=== PATIENT | female | born 1950 | race Caucasian/White ===

== ENCOUNTER 2024-01-22 13:41 | Inpatient (IN) | payer OTHER ==
[~2024-01-22] VITALS: Ht 167.6 cm; Wt 97.5 kg
[~2024-01-22 13:41] MED LIST: ADAL40PEN; B-12250 MCG PO; BUPR150ER PO; CLIN150 PO; Cleocin HCl150 MG PO; FOLI1 PO; Flagyl500 MG PO; HYDCHL25 PO; HYDR1TAB94 PO; LISI20 PO; METTREX2.5 PO; Naproxen500 MG PO; OMEP20ER PO; OXYACE7.5T PO; RXOXYACE PO; VICODIN 5-3001 EACH PO; Zofran Odt4 MG SL; [UNRECOGNIZED DRUG - REMARK]; [UNRECOGNIZED DRUG - REMARK]
[2024-01-22] MEDS ORDERED: LOSA50 PO (14:30)
[2024-01-22] MEDS ORDERED: METPRE4DP PO (14:31)
[2024-01-22] MEDS ORDERED: ZOLOFT50 MG PO (14:31)
[2024-01-22] MEDS ORDERED: BUPROPION XL150 M1 PO (14:32)
[2024-01-22] MEDS ORDERED: dilTIAZem HCL 125 MG in Dextrose 5% 100 ML IV SCH (14:35)
[2024-01-22 14:47] LABS: BASOPHILS ABSOLUTE AUTO 0.08 K/mm3 (0.00-0.23); BASOPHILS PERCENT AUTO 0 % (0-2); EOSINOPHILS PERCENT AUTO 0 % (0-6); Hematocrit 32.3 % (33.0-51.0); Hemoglobin 10.5 g/dL (11.5-16.0); IMMATURE GRAN ABSOLUTE AUTO 1.19 K/mm3 (0.00-0.10); IMMATURE GRAN PERCENT AUTO 3 % (0-1); LYMPHOCYTES ABSOLUTE AUTO 1.03 K/mm3 (0.84-5.20); LYMPHOCYTES PERCENT AUTO 3 % (21-46); MONOCYTES ABSOLUTE AUTO 0.16 K/mm3 (0.16-1.47); MONOCYTES PERCENT AUTO 0 % (4-13); Mean Corpuscular HGB 32.9 pg (26.0-34.0); Mean Corpuscular HGB Conc 32.5 g/dL (31.5-36.5); Mean Corpuscular Volume 101 fL (80-100); Mean Platelet Volume 8.8 fL (9.1-12.4); NEUTROPHILS PERCENT AUTO 94 % (41-73); Platelet Count 391 K/mm3 (150-400); RDW Coefficient Variation 15.9 % (11.7-14.2); RDW Standard Deviation 56.9 fL (35.1-46.3); Red Blood Cell Count 3.19 M/mm3 (3.80-5.20); White Blood Cell Count 39.56 K/mm3 (4.00-11.30)
[2024-01-22] MEDS ORDERED: Diltiazem HCl 5 MG / ML 5ML Vial IV ONE (15:00)
[2024-01-22 15:08] LABS: Albumin, Blood 2.3 g/dL (3.4-5.0); Albumin/Globulin Ratio 0.5 (0.8-1.8); Bilirubin, Total 1.2 mg/dL (0.1-1.0); Bun/Creatinine Ratio 41.2 (12.0-20.0); Calcium, Blood 8.5 mg/dL (8.5-10.1); Creatinine, Blood 1.7 mg/dL (0.40-1.00); Globulin, Blood 4.3 g/dL (2.2-4.0); Potassium, Blood 4.3 mmol/L (3.5-5.5); Thyroid Stimulating Hormone 2.23 uIU/mL (0.360-4.800); Total Protein, Blood 6.6 g/dL (6.4-8.2)
[2024-01-22] MEDS ORDERED: NS 1,000 ML IV SCH (15:20)
[2024-01-22] MEDS ORDERED: Ondansetron HCl 2 MG / ML 2ML Vial IV ONE (15:40)
[2024-01-22] MEDS ORDERED: Digoxin 0.25 MG/ML 2ML Amp IV ONE (16:45)
[2024-01-22 17:04] LABS: Anti-Xa UFH, PHA Monitoring <0.10 IU/mL; International Normalized Ratio 1.12; Prothrombin Time Results 11.9 Sec (9.7-11.5)
[2024-01-22] MEDS ORDERED: Heparin Sodium,Porcine/0.5 NS 500 ML IV SCH (17:10)
[2024-01-22] MEDS ORDERED: Heparin Sodium 5000 Units/ML 1ML MDV IV ONE ×2 (17:10→17:35)
[2024-01-22 17:55] LABS: IMMATURE RETIC FRACTION 15.1 % (2.3-16.0); RETICULOCYTE ABSOLUTE 0.1115 M/mm3 (0.0200-0.1100); RETICULOCYTE COUNT PERCENT 4.1 % (0.50-2.50)
[2024-01-22 18:11] LABS: Bun/Creatinine Ratio 43.6 (12.0-20.0); Calcium, Blood 8.2 mg/dL (8.5-10.1); Creatinine, Blood 1.56 mg/dL (0.40-1.00); Potassium, Blood 3.5 mmol/L (3.5-5.5)
[2024-01-22 18:54] VITALS: BP 102/55
[2024-01-22 18:56] VITALS: BP 102/55
--- NOTE | 2024-01-22 18:57 | NUR ---
PT ARRIVED TO PCU AROUND 1848 FROM THE ER. VITAL SIGNS STABLE. REPORT FROM JOSE POLLOCK. THE PT ARRIVED WITH A BOLUS OF NS INFUSING, A HEPARIN GTT, AND A CARDIZEM GTT. SEE CRITICAL CARE FLOW SHEET FOR DETAILS. HER FRANKLYN IS AT THE BEDSIDE.
[2024-01-22 20:16] VITALS: BP 95/62
[2024-01-22 20:17] VITALS: BP 98/54
--- NOTE | 2024-01-22 20:38 | NUR ---
CT PE STUDY COMPLETED THIS EVENING RIGHT AFTER SHIFT CHANGE. RESULTS RECEIVED. NOTIFIED RESIDENT DR. HERNANDEZ OF RESULTS. ON REPORT, WAS TOLD THAT DEPENDING ON RESULTS OF CT, STAT ECHO THAT WAS ORDERED FOR TONIGHT NEEDS TO EITHER BE COMPLETED TONIGHT OR CAN BE PUSHED UNTIL MORNING. AFTER GOING OVER RESULTS WITH DR. MARY GARCÍA, OKAY TO PUSH ECHO TO BE COMPLETED UNTIL MORNING. NOTIFIED FLAVIA MERCADO RN WHO NOTIFIED LAST PULLER KIN JENKINS. CONTINUING TO MONITOR.
[2024-01-22] MEDS ORDERED: HYDR1TAB94 (21:16)
[2024-01-22 23:30] VITALS: BP 89/58
[2024-01-22 23:41] VITALS: BP 89/58
[2024-01-23] VITALS (12 sets, daily range): BP systolic 86–99; BP diastolic 21–70
[2024-01-23] MEDS ORDERED: Dose Adjust by Pharmacy XX STA ×2 (00:05→07:28)
[2024-01-23] MEDS ORDERED: Ondansetron HCl 2 MG / ML 2ML Vial IV PRN (01:35)
--- NOTE | 2024-01-23 04:56 | NUR ---
SHIFT SUMMARY. NO ACUTE CHANGES THUS FAR THIS SHIFT. PT HAS BEEN AOX4, PLEASANT, COOPERATIVE WITH CARE, CALLS APPROPRIATELY, ABLE TO MAKE NEEDS KNOWN. ADMISSION PROCESS COMPLETED PER PROTOCOL. HEPARIN GTT HAS BEEN RUNNING THROUGHOUT SHIFT. CARDIZEM RUNNING UNTIL THIS MORNING WHEN IT WAS STOPPED. TELE ON THROUGHOUT SHIFT, HR HAS TRENDED DOWN OVERNIGHT WITH IT NOW SETTLING IN THE 80s-100s WHILE SLEEPING. CONTINUES TO RUN AFIB. BP HAS BEEN SOFT BUT MAP HAS REMAINED >=65 OUTSIDE OF ONE INSTANCE WHEN IT WAS 64. HAS MAINTAINED ADEQUATE SATURATION ON ROOM AIR THROUGHOUT SHIFT. HAS DENIED ANY PAIN OF ANY KIND THROUGHOUT SHIFT. ATTEMPTED POWERGLIDE INSERTION EARLY IN SHIFT BUT WAS UNSUCCESSFUL AND PT REQUESTED NOT TO HAVE FURTHER LINES ATTEMPTED UNTIL MORNING. SOME NAUSEA REPORTED EARLY THIS MORNING, NOTIFIED DR. WILCOX WHO ORDERED ZOFRAN 4 MG IV FOR MANAGEMENT WHICH WORKED WELL. PUREWICK PUT IN PLACE EARLY IN SHIFT DUE TO PT BEING BEDREST STATUS AT THIS TIME. SEE PREVIOUS NOTE ABOUT CT PE STUDY AND RELATED ECHO. NO OTHER CHANGES THIS SHIFT. BED LOCKED INN LOWEST POSITION WITH CALL LIGHT LEFT WITHIN REACH. CONTINUING TO MONITOR.
[2024-01-23 06:19] LABS: BASOPHILS ABSOLUTE AUTO 0.01 K/mm3 (0.00-0.23); BASOPHILS PERCENT AUTO 0 % (0-2); EOSINOPHILS ABSOLUTE AUTO 0.03 K/mm3 (0.00-0.68); EOSINOPHILS PERCENT AUTO 0 % (0-6); Hematocrit 25.8 % (33.0-51.0); Hemoglobin 8.6 g/dL (11.5-16.0); IMMATURE GRAN PERCENT AUTO 1 % (0-1); LYMPHOCYTES ABSOLUTE AUTO 1.72 K/mm3 (0.84-5.20); LYMPHOCYTES PERCENT AUTO 11 % (21-46); MONOCYTES ABSOLUTE AUTO 0.13 K/mm3 (0.16-1.47); MONOCYTES PERCENT AUTO 1 % (4-13); Mean Corpuscular HGB 32.6 pg (26.0-34.0); Mean Corpuscular HGB Conc 33.3 g/dL (31.5-36.5); Mean Corpuscular Volume 98 fL (80-100); Mean Platelet Volume 8.7 fL (9.1-12.4); NEUTROPHILS ABSOLUTE AUTO 13.93 K/mm3 (1.96-9.15); NEUTROPHILS PERCENT AUTO 87 % (41-73); Platelet Count 239 K/mm3 (150-400); RDW Coefficient Variation 15.8 % (11.7-14.2); RDW Standard Deviation 54.4 fL (35.1-46.3); Red Blood Cell Count 2.64 M/mm3 (3.80-5.20); White Blood Cell Count 16.02 K/mm3 (4.00-11.30)
[2024-01-23 06:47] LABS: Albumin, Blood 2.1 g/dL (3.4-5.0); Albumin/Globulin Ratio 0.6 (0.8-1.8); Bilirubin, Total 0.7 mg/dL (0.1-1.0); Bun/Creatinine Ratio 40.8 (12.0-20.0); Calcium, Blood 8.1 mg/dL (8.5-10.1); Creatinine, Blood 1.25 mg/dL (0.40-1.00); Globulin, Blood 3.6 g/dL (2.2-4.0); Potassium, Blood 3.8 mmol/L (3.5-5.5); Total Protein, Blood 5.7 g/dL (6.4-8.2)
[2024-01-23] MEDS ORDERED: Folic Acid 1 MG TAB PO SCH (09:00)
[2024-01-23] MEDS ORDERED: Sertraline HCl 50 MG Tab PO SCH (09:00)
[2024-01-23] MEDS ORDERED: buPROPion HCL 150 MG TAB.SR.12H PO SCH (09:00)
[2024-01-23] MEDS ORDERED: Metoprolol Tartrate 25 MG Tab PO SCH (09:00)
[2024-01-23 09:57] LABS: Source, Urine Clean Catch
[2024-01-23 10:06] LABS: Appearance, Urine Clear (Clear); Bilirubin, Urine Neg (Neg); Blood, Urine 4+ (Neg); Color, Urine Yellow (P-Yellow); Glucose Qualitative, Urine Neg (Neg); Ketones, Urine Neg (Neg); Leukocyte Esterase, Urine Neg (Neg); Nitrite, Urine Neg (Neg); Protein, Urine Neg (Neg); Urobilinogen, Urine NORM (Normal)
[2024-01-23 10:16] LABS: Bacteria Many /hpf; White Blood Cells, Urine 0-2 /hpf (0-5)
[2024-01-23 10:17] LABS: Squamous Epithelial Cells Many /hpf (Few)
--- NOTE | 2024-01-23 11:41 | NUR ---
THIS MORNING THE PT'S HR WAS BEGINING TO TACH UP TO 130'S. I TALKED TO DR. CAMACHO ABOUT STARTING PO MEDICAITONS BECAUSE THE DILT GTT WAS OFF SINCE [address] CAMACHO ASSESSED THE PT'S BP AND STARTED HER ON METOPROLOL TARTRATE. HE WANTS TO BE NOTIFED IF THE PT'S MAP <60. HR IS MORE CONTROLED WITH AFIB 90'S-110'S AFTER STARTING THE MEDICATION. SEE NOTES FOR MORE UPDATES.
--- NOTE | 2024-01-23 16:45 | NUR ---
SHIFT SUMMARY PT IS A&OX4, CALLS APPROPRAITELY, AND CAN MAKE HER NEEDS KNOWN. THE PT HAS BEEN BEDREST DUE TO WEAKNESS, PT/OT ORDERED. PT IS RECCOMENDING SNF AT THIS POINT AND MARTÍN POLLOCK FROM [employer] IS GOING TO SEND THE REFERALS OUT. PT IS OPEN AND WANTING TO GET REHAB. THE PT HAS BEEN ON RA ALL DAY W/O ANY C/O SOB, SP02 >90%. ON TELE SHE HAS BEEN AFIB 90'S-130'S. SEE PREVIOUS NOTE ABOUT THE CONVERSATION W/ DR. CAMACHO AND STARTING METOPROLOL TARTRATE. THE PT'S HEART RATE HAS BEEN CONTROLLED SINCE BEING ON THE MEDICATION. HER BP REMAINS SOFT BUT STABLE, MAP >65. DR. CAMACHO WANTED TO BE NOTIFIED IF THE MAP DROPS BELOW 60. THE PT HAS A PURWICK SET UP TO SUCTION AND IT HAS BEEN CHANGED A FEW TIMES THIS SHIFT. THE PT LOONEY SHIFT AROUDN IN BED IND, BUT HAS BEEN ROTATED WITH PILLOWS FOR BIGGER MOVEMENTS. THE PT HAS HAD MANY FAMILY MEMBERS VISITIING AND THEY HAVE BEEN UPDATED ON CARE PER REQUEST. SEE NOTES FOR ANY UPDATES.
--- NOTE | 2024-01-23 22:51 | NUR ---
ASSUMPTION OF CARE THIS RN ASSUMED CARE OF PT AT 1900, REPORT FROM AGUSTINA POLLOCK. PT IN SEMI ALTAMIRANO'S POSITION, WATCHING RV. PT A&O X4, PLEASANT AND COOPERATIVE WITH CARE VSS; ALTHOUGH BP IS SOFT 94/56 WITH MAP OF 67; PER REPORT AND DOCUMENTATION PT HAS BEEN HAVING SOME SOFT BP. HR IN 100 - 1TEENS AT TIME OF ASSESSMENT. PT DENIES CP/PRESSURE, SOB, DIZZINESS, N/V, PALPITATIONS. PT DENIES GENERAL PAIN AT THIS TIME. PT IS WEAK AND DECONDITIONED. LLE REMAINS SWOLLEN AND WARM TO THE TOUCH, PT DOES REPORT MILD TINGLING IN THAT EXTREMITY. PUREWICK AND ATTENDS IN PLACE. PT DENIES ANY CONCERNS OR NEEDS AT THIS TIME. CALL LIGHT IN REACH
[2024-01-24] VITALS: BP 90/63
[2024-01-24 04:00] VITALS: BP 92/70
[2024-01-24 04:32] LABS: Hematocrit 26.8 % (33.0-51.0); Hemoglobin 8.8 g/dL (11.5-16.0); Mean Platelet Volume 8.9 fL (9.1-12.4); Platelet Count 256 K/mm3 (150-400)
[2024-01-24] MEDS ORDERED: Clarify Drug Order XX ONE (04:55)
--- NOTE | 2024-01-24 05:45 | NUR ---
SHIFT SUMMARY PT REMAINS A&O X4, PT INTERACTING AND CONVERSING, LAUGHING WITH THIS RN. VSS; ALTHOUGH OF NOTE SBP CONTINUES TO BE SOFT 90 - 94 WITH ALL MAPS GREATER THAN 65, REMAINS AFIB WITH RATE IN 100 - 120'S. NO ACUTE EVENTS OR CHANGES SINCE ASSUMPTION OF CARE NOTE. PT REMAINS ON RA, SPO2 GREATER THAN 95%. PUREWICK AND ATTENDS IN PLACE; 650 MLS UOP THIS SHIFT. NO BM THIS SHIFT. Q2 TURNS. HEPARIN GTT PER EMAR. PT RESTED VERY WELL THIS SHIFT. CALL LIGHT IN REACH, WILL UPDATE ONCOMING RN
[2024-01-24 07:11] LABS: BASOPHILS ABSOLUTE AUTO 0.01 K/mm3 (0.00-0.23); BASOPHILS PERCENT AUTO 0 % (0-2); EOSINOPHILS ABSOLUTE AUTO 0.08 K/mm3 (0.00-0.68); EOSINOPHILS PERCENT AUTO 1 % (0-6); Hematocrit 27.2 % (33.0-51.0); Hemoglobin 8.8 g/dL (11.5-16.0); IMMATURE GRAN ABSOLUTE AUTO 0.23 K/mm3 (0.00-0.10); IMMATURE GRAN PERCENT AUTO 1 % (0-1); LYMPHOCYTES ABSOLUTE AUTO 1.76 K/mm3 (0.84-5.20); LYMPHOCYTES PERCENT AUTO 10 % (21-46); MONOCYTES ABSOLUTE AUTO 0.14 K/mm3 (0.16-1.47); MONOCYTES PERCENT AUTO 1 % (4-13); Mean Corpuscular HGB 32.4 pg (26.0-34.0); Mean Corpuscular HGB Conc 32.4 g/dL (31.5-36.5); Mean Corpuscular Volume 100 fL (80-100); NEUTROPHILS ABSOLUTE AUTO 15.31 K/mm3 (1.96-9.15); NEUTROPHILS PERCENT AUTO 87 % (41-73); Platelet Count 262 K/mm3 (150-400); RDW Coefficient Variation 15.8 % (11.7-14.2); RDW Standard Deviation 56.5 fL (35.1-46.3); Red Blood Cell Count 2.72 M/mm3 (3.80-5.20); White Blood Cell Count 17.53 K/mm3 (4.00-11.30)
[2024-01-24 07:26] LABS: Albumin, Blood 2.3 g/dL (3.4-5.0); Albumin/Globulin Ratio 0.6 (0.8-1.8); Bilirubin, Total 0.6 mg/dL (0.1-1.0); Calcium, Blood 8.4 mg/dL (8.5-10.1); Globulin, Blood 3.6 g/dL (2.2-4.0); Potassium, Blood 4.3 mmol/L (3.5-5.5); Total Protein, Blood 5.9 g/dL (6.4-8.2)
[2024-01-24 08:05] VITALS: BP 113/71
[2024-01-24 08:12] LABS: BASOPHILS PERCENT MAN 0 % (0-2); EOSINOPHILS PERCENT MAN 0 % (0-6); LYMPHOCYTES ABSOLUTE MAN 0.87 K/mm3 (0.84-5.20); LYMPHOCYTES PERCENT MAN 5 % (21-46); MONOCYTES ABSOLUTE MAN 0.17 K/mm3 (0.16-1.47); MONOCYTES PERCENT MAN 1 % (4-13); NEUTROPHILS ABSOLUTE MAN 16.47 K/mm3 (1.96-9.15); SEG NEUTROPHILS PERCENT MAN 94 % (41-73); TOTAL CELLS COUNTED 100
--- NOTE | 2024-01-24 08:23 | NUR ---
INITIAL ASSESSMENT: Patient is alert and oriented, awake sitting up in bed after eating breakfast. She reports minimal pain in her LLE, LLE is swollen and has a DVT, she states, "it feels like I am already wearing a shoe." She reports she has been really depressed for the last month and has not been out of bed except to go to the bathroom. She deneis N/T. HR irregular, A-Fib 110-120s-AM dose of Metoprolol given this am, blood pressure stable. LS CTA, biox is 98% on RA. BT+, pt states she has not had a BM in a couple of days, she states this is normal for her. PPP. 1+ edema to RLE and 3+ pitting edema to LLE. AM meds given at this time. Patient is requesting to "let her breakfast digest" before we get up and moving this morning. We talked about the importance of moving as she tolerates it. She denies other needs at this time. Call light in reach.
[2024-01-24 11:38] VITALS: BP 85/68
[2024-01-24 15:52] VITALS: BP 137/103
[2024-01-24 15:56] LABS: HIV 1,2 COMBO ANTIGEN/ANTIBODY Negative (Negative)
--- NOTE | 2024-01-24 18:06 | NUR ---
SUMMARY: Patient has been alert and oriented T/O the shift, she was unsure of the exact date but was able to tell me the month and year.Minimal C/O discomfort in her LLE which is swollen and has a DVT. HR irregular, she has been atrial fibrillation with RVR in the 90s-120s, Metoprolol was given this am and evening dose was increased, blood pressure was stable T/O the shift. BT+, she has not had a BM in the last couple of days, she did attempt on the BSC this shift with no success. She was able to get OOB to the recliner today during lunch time, she was able to be OOB for about 5 hours and is now back in bed. She was a 2 person transfer with a gait belt and FWW, she has a steady gait but some anxiety about falling. No other changes this shift, will report to oncoming RN.
[2024-01-24 19:49] VITALS: BP 99/65
[2024-01-24] MEDS ORDERED: Metoprolol Tartrate 25 MG Tab PO ONE (20:55)
[2024-01-24] MEDS ORDERED: Metoprolol Tartrate 50 MG Tab PO SCH (21:00)
--- NOTE | 2024-01-24 21:28 | NUR ---
ASSUMPTION OF CARE THIS RN ASSUMED CARE OF PT AT 1900. REPORT FROM MARIS CORBIN. PT SITTING UP IN SEMI FOWLERS, RESTING BUT EASILY AWAKENED. PT DENIES CP/PRESSURE, SOB, DIZZINESS, N/V. VSS; ALTHOUGH SBP SOFT AT 99, MAP OF 77. THIS RN CALLED PROVIDER ABOUT 2100 LOPRESSOR DOSE; ORDERS TO CHANGE DOSE TO 25 MG ONE TIME. PT ON RA, SPO2 98%. PT STATES SHE IS "TIRED" FROM TODAY'S ACTIVITIES BUT OVERALL IS DOING "BETTER". PT DENIES NEEDS OR CONCERNS AT THIS TIME. PUREWICK IN PLACE AND ATTENDS DRY. HEPARIN INFUSING PER DEC. CALL LIGHT IN REACH
[2024-01-24 23:08] LABS: IRON BIND.CAP.(TIBC) 204 ug/dL (250-450); IRON SATURATION 76 % (15-55); IRON, SERUM 155 ug/dL (27-139); UIBC 49 ug/dL (118-369)
[2024-01-25] VITALS (9 sets, daily range): BP systolic 84–112; BP diastolic 62–77
[2024-01-25] MEDS ORDERED: Metoprolol Tartrate 1 MG/ML 5 ML VIAL IV ONE (00:10)
[2024-01-25] MEDS ORDERED: Diltiazem HCl 5 MG / ML 5ML Vial IV ONE (01:45)
[2024-01-25 04:30] LABS: BASOPHILS ABSOLUTE AUTO 0.04 K/mm3 (0.00-0.23); BASOPHILS PERCENT AUTO 0 % (0-2); EOSINOPHILS ABSOLUTE AUTO 0.08 K/mm3 (0.00-0.68); EOSINOPHILS PERCENT AUTO 1 % (0-6); Hematocrit 27.4 % (33.0-51.0); IMMATURE GRAN ABSOLUTE AUTO 0.58 K/mm3 (0.00-0.10); IMMATURE GRAN PERCENT AUTO 4 % (0-1); LYMPHOCYTES ABSOLUTE AUTO 1.64 K/mm3 (0.84-5.20); LYMPHOCYTES PERCENT AUTO 12 % (21-46); MONOCYTES ABSOLUTE AUTO 0.26 K/mm3 (0.16-1.47); MONOCYTES PERCENT AUTO 2 % (4-13); Mean Corpuscular HGB 32.3 pg (26.0-34.0); Mean Corpuscular HGB Conc 32.8 g/dL (31.5-36.5); Mean Corpuscular Volume 98 fL (80-100); Mean Platelet Volume 8.5 fL (9.1-12.4); NEUTROPHILS ABSOLUTE AUTO 11.37 K/mm3 (1.96-9.15); NEUTROPHILS PERCENT AUTO 81 % (41-73); Platelet Count 256 K/mm3 (150-400); RDW Coefficient Variation 15.6 % (11.7-14.2); Red Blood Cell Count 2.79 M/mm3 (3.80-5.20); White Blood Cell Count 13.97 K/mm3 (4.00-11.30)
[2024-01-25 04:58] LABS: Albumin, Blood 2.3 g/dL (3.4-5.0); Anion Gap 8 mmol/L (3-11); Blood Urea Nitrogen 36 mg/dL (8-24); Bun/Creatinine Ratio 44.6 (12.0-20.0); CO2, Blood 23 mmol/L (21-32); Calcium, Blood 8.6 mg/dL (8.5-10.1); Chloride, Blood 108 mmol/L (98-108); Creatinine, Blood 0.81 mg/dL (0.40-1.00); Glomerular Filtration Rate 77 (60-); Glucose, Blood 104 mg/dL (70-99); Phosphorus, Blood 2.3 mg/dL (2.5-4.9); Potassium, Blood 4.7 mmol/L (3.5-5.5); Sodium, Blood 134 mmol/L (136-145)
[2024-01-25] MEDS ORDERED: Clarify Drug Order XX ONE (05:05)
--- NOTE | 2024-01-25 06:44 | NUR ---
SHIFT SUMMARY PT REMAINS A&O X4. VS; SBP 95 - 106, HR 100 - 130'S. THIS RN NOTIFIED HOSPITALIST, ORDERS FOR ONE TIME 5 MG PUSH IV LOPRESSOR. IF NO BODY RECALL INSTRUCTOR TO ADMINISTER 10 MG OF IV CARDIZEM. THIS RN GAVE LOPRESSOR WITH LITTLE IMPROVMENT. 10 MG OF CARDIZEM ADMINISTER, PT HR IMPROVED 90 - 100'S, 1 TEENS WITH ACTIVITY. AROUND 0530 PT REQUESTING TO BE UP IN CHAIR, HR THEN INCREASED 140 - 156; PT ASYMPTOMATIC. HR 1 TEENS - 120'S NOW AT REST. OTHERWISE, NO CHANGES TO PT CONDITION. PT UP IN CHAIR FOR A WHILE THIS EVENING AND MORNING. PT MORE INTERACTIVE, SMILING AND CONVERSING. PT STATES SHE IS STARTING TO "FEEL BETTER AND FEELING GOOD ABOUT GOING TO REHAB". PT CONTINUES TO C/O OF WEAKNESS WELL PAIN IN LLE. PT STATES SHE HAS BEEN "SLEEPING SO WELL AND FEELS RESTED". HEPARIN INFUSING PER EMAR. PUREWICK IN PLACE WITH 600 MLS OUT THIS SHIFT. NO BM. PT CURRENTLY BACK IN BED RESTING, CALL LIGHT IN REACH. WILL UPDATE ONCOMING RN
[2024-01-25] MEDS ORDERED: Digoxin 0.25 MG/ML 2ML Amp IV ONE (08:40)
[2024-01-25] MEDS ORDERED: Apixaban 5 MG Tab PO SCH (09:00)
[2024-01-25] MEDS ORDERED: Midodrine 5 MG Tab PO SCH (09:00)
[2024-01-25] MEDS ORDERED: Digoxin 0.25 MG/ML 2ML Amp IV SCH (15:00)
[2024-01-25 15:23] LABS: HOMOCYSTEINE,TOTAL 23 umol/L (0-15)
--- NOTE | 2024-01-25 15:31 | NUR ---
NEW POLST FILLED OUT Upon entering pt room, pt sitting up in recliner. A/O x3, able to make needs known, no acute distress noted. This PC RN reviewed CPR vs DNR. Pt elects DNR. Reviewed all three levels of medical care (comfort, limited, full). Pt elects LIMITED MEDICAL INTERVENTION. Pt states, "I don't want a feeding tube......I don't want any tubes.". Pt agreeable to c-pap and bi-pap, no intubation. POLST from filled out with DNR, LIMITED MEDICAL INTERVENTION. POLST pending provider signature. Primary RN provided with update. PC will remain available as needed.
--- NOTE | 2024-01-25 16:29 | NUR ---
Shift Summary Pt alert, oriented; calm and cooperative with care. Pt up in chair with 1-2 person assist. Pt denies pain, chest pain/pressure, sob, nausea, dizziness and numb/tingling. Tele this am 110-140's, trending down during shift, 100-120's bp soft. Dr Gallegos at bedside this am, new order for digoxin and NPO after MD for possible cardioversion. Spo2 >90% on ra, breathing even and unlabored. LLE 3+ edema noted, RLE 1+. Pt had purewick in place this am, removed during physical therapy, educated pt that would not be replacing at this time, encouraged pt to get up to BSC when they need to void. No other acute changes noted. Will continue to monitor.
[2024-01-25] MEDS ORDERED: Thiamine HCl 100 MG Tab PO SCH (17:10)
[2024-01-25] MEDS ORDERED: Multivitamins-Minerals Liquid 15 ML Oral Syringe PO SCH (17:10)
[2024-01-26] VITALS (8 sets, daily range): BP systolic 91–112; BP diastolic 65–88
--- NOTE | 2024-01-26 05:11 | NUR ---
SHIFT SUMMARY. SHIFT HAS BEEN UNREMARKABLE. PT AOX4, PLEASANT, COOPERATIVE WITH CARE, CALLS APPROPRIATELY, ABLE TO MAKE NEEDS KNOWN. PT HAS SLEPT THROUGH MOST OF SHIFT. BP HAS BEEN SOFT BUT STABLE, MAP HAS REMAINED >65. TELE ON THROUGHOUT SHIFT, HAS BEEN RUNNING AFIB IN 90s-110s RANGE OVERNIGHT. VITALS OTHERWISE STABLE. NO PAIN REPORTED THIS SHIFT. PT ABLE TO REPOSITION SELF INDEPENDENTLY IN BED AND REQUESTS ASSISTANCE APPROPRIATELY. PUREWICK IN PLACE THROUGHOUT SHIFT, I+Os CHARTED APPROPRIATELY. NPO SINCE MIDNIGHT PER NURSE NOTIFY ORDER. BED LOCKED IN LOWEST POSITION. CALL LIGHT LEFT WITHIN REACH. CONTINUING TO MONITOR.
[2024-01-26 05:48] LABS: Albumin, Blood 2.2 g/dL (3.4-5.0); Anion Gap 9 mmol/L (3-11); Blood Urea Nitrogen 27 mg/dL (8-24); Bun/Creatinine Ratio 33.3 (12.0-20.0); CO2, Blood 24 mmol/L (21-32); Calcium, Blood 8.4 mg/dL (8.5-10.1); Chloride, Blood 108 mmol/L (98-108); Creatinine, Blood 0.81 mg/dL (0.40-1.00); Glomerular Filtration Rate 77 (60-); Glucose, Blood 99 mg/dL (70-99); Magnesium, Blood 1.4 mg/dL (1.6-2.4); Phosphorus, Blood 2.6 mg/dL (2.5-4.9); Potassium, Blood 4.5 mmol/L (3.5-5.5); Sodium, Blood 136 mmol/L (136-145)
[2024-01-26] MEDS ORDERED: Mag Sulfate 1 GM/D5% 100ML 100 ML IV STA (08:19)
[2024-01-26] MEDS ORDERED: Digoxin 0.125 MG Tab PO SCH (09:00)
--- NOTE | 2024-01-26 12:30 | NUR ---
PLAN OF CARE FOR THE DAY: SPOKE WITH DR. FLOWERS IN REGARDS TO POTENTIAL CARDIOVERSION TODAY. DURING THE NIGHT, PATIENT'S HR WAS IN THE 90S-100S PER REPORT. THIS MORNING, PATIENT STARTED TO INCREASE ON HER RATE PRIOR TO GETTING HER MORNING MEDICATIONS, PATIENT TOUCHING UP TO 120S-130. AFTER RECEVING MORNING MEDICATIONS AND AT THE TIME OF THIS DISCUSSION, PATIENT'S HR IN THE 80S-90S. DR. FLOWERS REPORTED THAT THE PATIENT WOULD NOT BE HAVING A CARDIOVERSION TODAY AND THAT THERE WAS NO NEED TO CONTACT DR. VELÁSQUEZ. PATIENT ASYMPTOMATIC TO CHANGES IN HER HR. PATIENT UPDATED ON THE PLAN AND PROVIDED WITH HER LUNCH.
--- NOTE | 2024-01-26 19:04 | NUR ---
SHIFT SUMMARY: PATIENT DENIED PAIN AND DISCOMFORT THROUGHOUT THE SHIFT. PATIENT MOVING LIMBS WEAKLY, BUT EQUALLY. PATIENT HAS SOME FORGETFULLNESS RELATED TO CURRENT SITUATION. PATIENT IS VERY DEPRESSED. THIS MORNING PATIENT TEARFULLY STATED "I AM SO DEPRESSED". PATIENT RECEIVED SCHEDULED ANTI-DEPRESSANT MEDICATIONS. PATIENT REPORTED THAT THIS HELPED. PATIENT WAS ALSO VISITED BY FRIENDS DURING THE SHIFT. PATIENT ALSO ANXIOUS AT TIMES. PATIENT RESPONDS WELL TO EDUCATION AND ENCOURAGEMENT. PATIENT DENIED CHEST PAIN OR DISCOMFORT THROUGHOUT THE SHIFT. PATIENT REPORTED THAT SHE IS UNABLE TO TELL WHEN HER HR INCREASES. IN THE AM, PRIOR TO MORNING MEDICATIONS, HR WAS IN THE 120S WITH OCCASIONALLY UP TO 130. AFTER MORNING MEDICATIONS, PATIENT SUSTAINED AFIB IN THE 80S-90S. LATER IN THE AFTERNOON, PATIENT'S HR SLOWLY INCREASED. BY THE END OF SHIFT, PATIENT IN THE 100S-110S. WITH ACTIVITY [place] [facility] [place] UP TO THE 140S. PATIENT REPORTS MILD DIZZINESS THAT RESOLVES WITH TAKING HER TIME AND REST. BLOOD PRESSURES STABLE WITH MAPS >65. PATIENT STABLE ON RA. PATIENT EDUCATED ON INCENTIVE SPIROMETRY. PATIENT ABLE TO DEMONSTRATE. PATIENT CONTINENT. PUREWICK IN PLACE. YELLOW, CLEAR URINE. PATIENT ATE ALL OF HER LUNCH. SHE REPORTED THAT SHE HAS BEEN DEVELOPING AN APPETITE. PATIENT DECLINED DINNER. PATIENT WORKED WITH PT/OT. PATIENT UP TO THE BSC WITH 2 ASSIST AND FWW. PATIENT ABLE TO HAVE A BOWEL MOVEMENT.
[2024-01-27 04:22] VITALS: BP 101/74
[2024-01-27 04:49] LABS: BASOPHILS ABSOLUTE AUTO 0.03 K/mm3 (0.00-0.23); BASOPHILS PERCENT AUTO 0 % (0-2); EOSINOPHILS ABSOLUTE AUTO 0.06 K/mm3 (0.00-0.68); EOSINOPHILS PERCENT AUTO 0 % (0-6); Hematocrit 28.4 % (33.0-51.0); Hemoglobin 9.4 g/dL (11.5-16.0); IMMATURE GRAN ABSOLUTE AUTO 0.79 K/mm3 (0.00-0.10); IMMATURE GRAN PERCENT AUTO 5 % (0-1); LYMPHOCYTES ABSOLUTE AUTO 1.84 K/mm3 (0.84-5.20); LYMPHOCYTES PERCENT AUTO 11 % (21-46); MONOCYTES ABSOLUTE AUTO 0.97 K/mm3 (0.16-1.47); MONOCYTES PERCENT AUTO 6 % (4-13); Mean Corpuscular HGB 32.8 pg (26.0-34.0); Mean Corpuscular HGB Conc 33.1 g/dL (31.5-36.5); Mean Corpuscular Volume 99 fL (80-100); Mean Platelet Volume 8.8 fL (9.1-12.4); NEUTROPHILS ABSOLUTE AUTO 13.85 K/mm3 (1.96-9.15); NEUTROPHILS PERCENT AUTO 79 % (41-73); Platelet Count 210 K/mm3 (150-400); RDW Coefficient Variation 16.6 % (11.7-14.2); Red Blood Cell Count 2.87 M/mm3 (3.80-5.20); White Blood Cell Count 17.54 K/mm3 (4.00-11.30)
[2024-01-27 05:11] LABS: Albumin, Blood 2.4 g/dL (3.4-5.0); Anion Gap 10 mmol/L (3-11); Blood Urea Nitrogen 26 mg/dL (8-24); Bun/Creatinine Ratio 29.7 (12.0-20.0); CO2, Blood 25 mmol/L (21-32); Chloride, Blood 105 mmol/L (98-108); Creatinine, Blood 0.88 mg/dL (0.40-1.00); Glomerular Filtration Rate 69 (60-); Glucose, Blood 102 mg/dL (70-99); Magnesium, Blood 1.7 mg/dL (1.6-2.4); Phosphorus, Blood 2.9 mg/dL (2.5-4.9); Potassium, Blood 4.5 mmol/L (3.5-5.5); Sodium, Blood 135 mmol/L (136-145)
--- NOTE | 2024-01-27 05:52 | NUR ---
SHIFT SUMMARY PT STATED SHE WAS "VERY TIRED." TOLD THIS RN SHE DID NOT WANT TO BE DISTURBED, IF AT ALL POSSIBLE. ADMINISTERED EVENING MEDS, FLUSHED IV TO ESTABLISH PATENCY, AND LET HER SLEEP. CHECKED ON HER T/O SHIFT. SLEEPING SOUNDLY. WILL CONTINUE TO MONITOR.
[2024-01-27 07:40] VITALS: BP 107/83
[2024-01-27 08:46] LABS: MMA S/P,VITAMIN B12 STATUS 0.3 umol/L (0.00-0.40)
[2024-01-27] MEDS ORDERED: Midodrine 5 MG Tab PO SCH (09:00)
[2024-01-27 13:41] VITALS: BP 106/64
[2024-01-27 17:34] VITALS: BP 114/61
--- NOTE | 2024-01-27 18:27 | NUR ---
SHIFT SUMMARY: PT A&O X4. PLEASANT AND COOPERATIVE WITH CARE. FLAT AFFECT WITH DEPRESSION NOTED. TELE IN PLACE RUNNING AFIB. HR SPIKES TO 130'S-140'S c AMBULATION. MIDODRINE GIVEN PER EMAR FOR HYPOTENSION. PT WORKED WITH PT/OT THIS SHIFT. 2P ASSIST FOR TRANSFERS. PLAN FOR PT TO HOPEFULLY D/C TO SNF TOMORROW. PUREWICK IN PLACE DRAINING YELLOW URINE. CALL LIGHT IN REACH. BED IN LOWEST POSITION.
[2024-01-27 19:27] VITALS: BP 110/79
[2024-01-28 04:39] VITALS: BP 113/69
[2024-01-28 05:10] LABS: BASOPHILS ABSOLUTE AUTO 0.03 K/mm3 (0.00-0.23); BASOPHILS PERCENT AUTO 0 % (0-2); EOSINOPHILS ABSOLUTE AUTO 0.07 K/mm3 (0.00-0.68); EOSINOPHILS PERCENT AUTO 1 % (0-6); Hematocrit 28.2 % (33.0-51.0); Hemoglobin 9.3 g/dL (11.5-16.0); IMMATURE GRAN ABSOLUTE AUTO 0.33 K/mm3 (0.00-0.10); IMMATURE GRAN PERCENT AUTO 2 % (0-1); LYMPHOCYTES PERCENT AUTO 14 % (21-46); MONOCYTES ABSOLUTE AUTO 0.99 K/mm3 (0.16-1.47); MONOCYTES PERCENT AUTO 7 % (4-13); Mean Corpuscular HGB 32.9 pg (26.0-34.0); Mean Corpuscular Volume 100 fL (80-100); Mean Platelet Volume 9.1 fL (9.1-12.4); NEUTROPHILS ABSOLUTE AUTO 11.35 K/mm3 (1.96-9.15); NEUTROPHILS PERCENT AUTO 77 % (41-73); Platelet Count 200 K/mm3 (150-400); RDW Coefficient Variation 16.7 % (11.7-14.2); RDW Standard Deviation 59.7 fL (35.1-46.3); Red Blood Cell Count 2.83 M/mm3 (3.80-5.20); White Blood Cell Count 14.77 K/mm3 (4.00-11.30)
--- NOTE | 2024-01-28 05:13 | NUR ---
PT A&O X 4. FLAT AFFECT. C/O BEING TIRED BUT REPORTS SLEEPING WELL THROUGH NIGHT. DENIES CP OR PALPITATIONS. REMAINS AFIB ON TELE, NO EPISODES OF RVR. NO ACUTE EVENTS OVERNIGHT.
[2024-01-28 05:35] LABS: Albumin, Blood 2.2 g/dL (3.4-5.0); Anion Gap 10 mmol/L (3-11); Blood Urea Nitrogen 24 mg/dL (8-24); Bun/Creatinine Ratio 30.7 (12.0-20.0); CO2, Blood 23 mmol/L (21-32); Calcium, Blood 8.7 mg/dL (8.5-10.1); Chloride, Blood 105 mmol/L (98-108); Creatinine, Blood 0.78 mg/dL (0.40-1.00); Glomerular Filtration Rate 80 (60-); Glucose, Blood 102 mg/dL (70-99); Phosphorus, Blood 2.8 mg/dL (2.5-4.9); Potassium, Blood 4.2 mmol/L (3.5-5.5); Sodium, Blood 134 mmol/L (136-145)
[2024-01-28 07:19] VITALS: BP 113/77
[2024-01-28 10:51] VITALS: BP 218/203
[2024-01-28 10:56] VITALS: BP 111/71
[2024-01-28 14:07] VITALS: BP 102/70
--- NOTE | 2024-01-28 14:23 | NUR ---
TRANSFER SUMMARY RN TO RN REPORT GIVEN TO MARIS DOVE AT [facility]. PATIENT LEFT UNIT VIA TRANSPORT CHAIR WITH TRANSPORT.
== END 2024-01-28 14:37 | DRG 309 ==
LOC: ER 13:41 → PCU 17:02 → MEDS 01-25 18:54
PROVIDERS: Family Medicine; Student in an Organized Health Care Education/Training Program; ADMIT Internal Medicine
DX: I48.91 Unspecified atrial fibrillation (principal); E87.20 Acidosis, unspecified; N17.9 Acute kidney failure, unspecified; I34.0 Nonrheumatic mitral (valve) insufficiency; I95.9 Hypotension, unspecified; M06.9 Rheumatoid arthritis, unspecified; N18.30 Chronic kidney disease, stage 3 unspecified; F32.A Depression, unspecified; E78.5 Hyperlipidemia, unspecified; G47.33 Obstructive sleep apnea (adult) (pediatric); I12.9 Hypertensive chronic kidney disease with stage 1 through stage 4 chronic kidney disease, or unspecified chronic kidney disease; Z66 Do not resuscitate; E80.6 Other disorders of bilirubin metabolism; D72.829 Elevated white blood cell count, unspecified; M19.90 Unspecified osteoarthritis, unspecified site; K21.9 Gastro-esophageal reflux disease without esophagitis; E53.8 Deficiency of other specified B group vitamins; R09.02 Hypoxemia; D63.1 Anemia in chronic kidney disease; G25.81 Restless legs syndrome; Z74.01 Bed confinement status; Z88.0 Allergy status to penicillin; Z91.030 Bee allergy status; Z91.038 Other insect allergy status; Z79.891 Long term (current) use of opiate analgesic; Z79.899 Other long term (current) drug therapy; Z96.611 Presence of right artificial shoulder joint; Z96.652 Presence of left artificial knee joint; Z96.641 Presence of right artificial hip joint; Z90.49 Acquired absence of other specified parts of digestive tract; Z99.81 Dependence on supplemental oxygen; E66.9 Obesity, unspecified; Z86.718 Personal history of other venous thrombosis and embolism; Z68.35 Body mass index [BMI] 35.0-35.9, adult
CPT/HCPCS: 36415; 71045; 71260; 76700; 80048; 80053; 80069; 81001; 82330; 82607; 82746; 82947; 83090; 83540; 83550; 83605; 83735; 83880; 83921; 84443; 84484; 85014; 85018; 85025; 85045; 85049; 85520; 85610; 85730; 87086; 87389; 93005; 93010; 93306; 93970; 96365-59; 96366; 96368; 96375-59; 97110; 97161; 97165; 97530; 99285-25; A9270; J1160; J1644; J2405; J3475; J7030; Q9967

== ENCOUNTER 2024-05-01 11:58 | Emergency (ER) | payer OTHER ==
[~2024-05-01] VITALS: Ht 165.1 cm; Wt 83.9 kg
[~2024-05-01 11:58] MED LIST changes: +ACET120S PR; +Acetaminophen650 M1 PO; +BUPROPION XL150 M1 PO; +DIGOX125 MC1 PO; +ELIQUIS5 M2 PO; +HYDR1TAB94; +LOSA50 PO; +METO50 PO; +METPRE4DP PO; +MIDODRINE HCL10 M3 PO; +ZOLOFT50 MG PO
[2024-05-01 12:14] LABS: BASOPHILS PERCENT AUTO 1 % (0-2); EOSINOPHILS ABSOLUTE AUTO 0.29 K/mm3 (0.00-0.68); EOSINOPHILS PERCENT AUTO 3 % (0-6); Hematocrit 36.4 % (33.0-51.0); Hemoglobin 11.7 g/dL (11.5-16.0); IMMATURE GRAN ABSOLUTE AUTO 0.23 K/mm3 (0.00-0.10); IMMATURE GRAN PERCENT AUTO 2 % (0-1); LYMPHOCYTES ABSOLUTE AUTO 2.95 K/mm3 (0.84-5.20); LYMPHOCYTES PERCENT AUTO 28 % (21-46); MONOCYTES ABSOLUTE AUTO 0.94 K/mm3 (0.16-1.47); MONOCYTES PERCENT AUTO 9 % (4-13); Mean Corpuscular HGB Conc 32.1 g/dL (31.5-36.5); Mean Corpuscular Volume 96 fL (80-100); Mean Platelet Volume 8.5 fL (9.1-12.4); NEUTROPHILS ABSOLUTE AUTO 6.19 K/mm3 (1.96-9.15); NEUTROPHILS PERCENT AUTO 58 % (41-73); Platelet Count 458 K/mm3 (150-400); RDW Coefficient Variation 14.4 % (11.7-14.2); RDW Standard Deviation 49.8 fL (35.1-46.3); Red Blood Cell Count 3.78 M/mm3 (3.80-5.20)
[2024-05-01 12:33] LABS: Albumin, Blood 2.9 g/dL (3.4-5.0); Albumin/Globulin Ratio 0.8 (0.8-1.8); Bilirubin, Total 0.4 mg/dL (0.1-1.0); Bun/Creatinine Ratio 25.1 (12.0-20.0); Calcium, Blood 8.7 mg/dL (8.5-10.1); Creatinine, Blood 0.92 mg/dL (0.40-1.00); Globulin, Blood 3.7 g/dL (2.2-4.0); Potassium, Blood 3.7 mmol/L (3.5-5.5); Total Protein, Blood 6.6 g/dL (6.4-8.2)
[2024-05-01] MEDS ORDERED: Lactated Ringer's 1,000 ML IV SCH (12:40)
[2024-05-01] MEDS ORDERED: levETIRAcetam 1,500 MG in NS 100 ML IV ONE (13:25)
[2024-05-01] MEDS ORDERED: LEVE500 PO (14:11)
[2024-05-01 14:59] VITALS: BP 134/98
== END 2024-05-01 15:12 | disposition home or self-care (01) ==
LOC: ER 11:58
PROVIDERS: Emergency Medicine
DX: G40.409 Other generalized epilepsy and epileptic syndromes, not intractable, without status epilepticus (principal); I10 Essential (primary) hypertension; Z86.79 Personal history of other diseases of the circulatory system; Z88.0 Allergy status to penicillin; Z91.030 Bee allergy status; Z79.899 Other long term (current) drug therapy; Z79.01 Long term (current) use of anticoagulants
CPT/HCPCS: 70450; 80053; 85025; J1953; J7120

== ENCOUNTER 2024-07-11 12:43 | Inpatient (IN) | payer OTHER ==
[~2024-07-11] VITALS: Ht 167.6 cm; Wt 83.6 kg
[~2024-07-11 12:43] MED LIST changes: +ATOR40TA PO; -BUPR150ER PO; +CIPR500 PO; +KLOR-CON 1010 ME9 PO; +LEVE500 PO; +LEVETIRACETAM50014 PO; -LOSA50 PO; +LOSARTAN POTAS100 M1 PO; +MEGE40T PO; +METHOTREXATE2.510 PO; +METO25ER PO; +MIRT15 PO; +VISBIOME 112.51 EACH PO; +ZOLOFT25 MG PO
[2024-07-11 13:30] LABS: Hematocrit 24.7 % (33.0-51.0); Mean Corpuscular HGB 30.7 pg (26.0-34.0); Mean Corpuscular HGB Conc 32.4 g/dL (31.5-36.5); Mean Corpuscular Volume 95 fL (80-100); Mean Platelet Volume 10.3 fL (9.1-12.4); NRBC ABSOLUTE 0.04 K/mm3 (0.00-0.02); NRBC Auto 0.5 /100 WBC (0.0-0.2); RDW Coefficient Variation 15.3 % (11.7-14.2); RDW Standard Deviation 51.9 fL (35.1-46.3); Red Blood Cell Count 2.61 M/mm3 (3.80-5.20); White Blood Cell Count 8.49 K/mm3 (4.00-11.30)
[2024-07-11 13:54] LABS: Free Thyroxine 1.09 ng/dL (0.70-1.60)
[2024-07-11 13:57] LABS: Thyroid Stimulating Hormone 4.61 uIU/mL (0.360-4.800)
[2024-07-11 13:58] LABS: Albumin, Blood 2.2 g/dL (3.4-5.0); Albumin/Globulin Ratio 0.6 (0.8-1.8); Bilirubin, Total 0.6 mg/dL (0.1-1.0); Bun/Creatinine Ratio 26.1 (12.0-20.0); Calcium, Blood 7.7 mg/dL (8.5-10.1); Creatinine, Blood 1.42 mg/dL (0.40-1.00); Globulin, Blood 3.6 g/dL (2.2-4.0); Potassium, Blood 3.2 mmol/L (3.5-5.5); Total Protein, Blood 5.8 g/dL (6.4-8.2)
[2024-07-11 14:16] LABS: Platelet Count 12 K/mm3 (150-400)
[2024-07-11 14:17] LABS: Digoxin (Lanoxin) 2.13 ug/mL (0.80-2.00)
[2024-07-11 14:21] LABS: BAND PERCENT MAN 2 % (0-8); BASOPHILS PERCENT MAN 0 % (0-2); EOSINOPHILS PERCENT MAN 6 % (0-6); LYMPHOCYTES % ATYPICAL MANUAL 1 % (0-0); LYMPHOCYTES PERCENT MAN 12 % (21-46); MONOCYTES ABSOLUTE MAN 0.08 K/mm3 (0.16-1.47); MONOCYTES PERCENT MAN 1 % (4-13); NEUTROPHILS ABSOLUTE MAN 6.79 K/mm3 (1.96-9.15); SEG NEUTROPHILS PERCENT MAN 78 % (41-73); TOTAL CELLS COUNTED 100
[2024-07-11] MEDS ORDERED: Acetaminophen 325 MG TABLET PO PRN (16:55)
[2024-07-11] MEDS ORDERED: Potassium Chl 20MEQ/Water100ML 100 ML IV STA (16:55)
[2024-07-11] MEDS ORDERED: Ondansetron HCl 2 MG / ML 2ML Vial IV PRN (16:55)
[2024-07-11] MEDS ORDERED: FentaNYL Citrate 50 MCG/ML 2 ML Injection IV PRN (16:55)
[2024-07-11] MEDS ORDERED: Acetaminophen 650 MG Supp PR PRN (16:55)
[2024-07-11] MEDS ORDERED: FLU VACC TS2024-25(6MOS UP)/PF 45 MCG/0.5 ML SYRINGE IM PRN (16:55)
[2024-07-11] MEDS ORDERED: Lactated Ringer's 1,000 ML IV SCH (16:55)
[2024-07-11] MEDS ORDERED: MethylPREDNISolone Sod Succ 1,000 MG in Dextrose 5% 50 ML IV SCH (18:00)
[2024-07-11 19:49] VITALS: BP 105/66
[2024-07-11] MEDS ORDERED: PANT40 (19:56)
[2024-07-11] MEDS ORDERED: FURO20 PO (19:56)
[2024-07-11] MEDS ORDERED: HUMIRA40 MG/0.2 INJ (19:57)
[2024-07-11 20:00] VITALS: BP 85/68
--- NOTE | 2024-07-11 20:00 | NUR ---
ADMISSION PATIENT ARRIVED TO PCU 04. PATIENT MOVED OVER TO PCU BED WITH ASSISTANCE OF STAFF. PATIENT SAFETY MANAGER AND PCT AT BEDSIDE. PATIENT IS ALERT, OPENING EYES TO HER NAME BUT QUICKLY FALLS BACK ASLEEP. PATIENT HAS CRUSTED BLOOD AROUND HER MOUTH WITH SIGNS OF BLEEDING GUMS IN HER MOUTH. PATIENT HAS SIGNIFICANT BRUISING AND OPEN WOUNDS. PHOTOS IN CHART. PATIENT SAFETY MANAGER CALLED RESIDENT REGARDING SIGNIFICANT ESCORIATIONS, ORDER FOR EDEN CATH RECEIVED. EDEN PLACED BY THIS RN, YELLOW URINE AND SEDIMENT OUT. UA SENT. PATIENT ON TELE READING AFIB 100s. BP SOFT. FLUIDS STARTED PER EMAR. PATIENT SAFETY MANAGER AT BEDSIDE PLACING POWERGLIDE, OTHER IV MEDS TO BE STARTED ONCE LINE IS IN. BED ALARM ON FOR SAFETY. HAS CALL LIGHT IN REACH.
[2024-07-11 20:15] VITALS: BP 92/78
[2024-07-11 20:24] LABS: Source, Urine Clean Catch
[2024-07-11 20:25] LABS: Hematocrit 24.3 % (33.0-51.0); Hemoglobin 7.9 g/dL (11.5-16.0)
[2024-07-11 20:49] LABS: Appearance, Urine Hazy (Clear); Bilirubin, Urine Neg (Neg); Blood, Urine 2+ (Neg); Color, Urine Yellow (P-Yellow); Glucose Qualitative, Urine Neg (Neg); Ketones, Urine Neg (Neg); Leukocyte Esterase, Urine 3+ (Neg); Nitrite, Urine Neg (Neg); Protein, Urine 1+ (Neg); Urobilinogen, Urine NORM (Normal)
[2024-07-11 20:58] LABS: Bacteria Many /hpf; Red Blood Cells, Urine 0-2 /hpf (0-2); Squamous Epithelial Cells Mod /hpf (Few); White Blood Cells, Urine TNTC /hpf (0-5)
[2024-07-11] MEDS ORDERED: Miconazole Nitrate 2% 85 GM PWD TOP SCH (21:00)
[2024-07-11] MEDS ORDERED: levETIRAcetam 500 MG in NS 100 ML IV SCH (21:00)
[2024-07-11] MEDS ORDERED: NS 250 ML IV PRN (21:55)
[2024-07-11 22:07] VITALS: BP 115/76
[2024-07-11 22:27] VITALS: BP 121/67
[2024-07-12] VITALS (17 sets, daily range): BP systolic 98–148; BP diastolic 59–137
[2024-07-12 04:10] LABS: Hemoglobin 6.7 g/dL (11.5-16.0); Mean Corpuscular HGB 30.6 pg (26.0-34.0); Mean Corpuscular HGB Conc 33.5 g/dL (31.5-36.5); Mean Corpuscular Volume 91 fL (80-100); Mean Platelet Volume 11.3 fL (9.1-12.4); RDW Standard Deviation 48.4 fL (35.1-46.3); Red Blood Cell Count 2.19 M/mm3 (3.80-5.20)
[2024-07-12 04:24] LABS: Bun/Creatinine Ratio 27.9 (12.0-20.0); Calcium, Blood 7.5 mg/dL (8.5-10.1); Creatinine, Blood 1.11 mg/dL (0.40-1.00); Potassium, Blood 3.7 mmol/L (3.5-5.5)
[2024-07-12 05:27] LABS: Platelet Count 33 K/mm3 (150-400)
[2024-07-12 05:46] LABS: BAND PERCENT MAN 1 % (0-8); BASOPHILS PERCENT MAN 0 % (0-2); EOSINOPHILS PERCENT MAN 0 % (0-6); LYMPHOCYTES ABSOLUTE MAN 0.31 K/mm3 (0.84-5.20); LYMPHOCYTES PERCENT MAN 5 % (21-46); MONOCYTES PERCENT MAN 0 % (4-13); NEUTROPHILS ABSOLUTE MAN 5.98 K/mm3 (1.96-9.15); SEG NEUTROPHILS PERCENT MAN 94 % (41-73); TOTAL CELLS COUNTED 100
--- NOTE | 2024-07-12 05:51 | NUR ---
SHIFT SUMMARY PATIENT WAKES TO VERBAL STIMULI. PATIENT WILL SAY A FEW WORDS BUT THEN WILL CLOSE EYES. BP SOFT, MAP >65. TELE ON ADMISSION READING AFIB, PATIENT CONVERTED TO SR AROUND 2200. PATIENT ON RA WITH SPO2 >90%. PATIENT TURNED Q2. PHOTOS IN CHART OF EXCORIATIONS. EDEN PLACED ON ADMISSION D/T OPEN WOUNDS. FLUIDS INFUSING PER EMAR. LOW HgB ON AM LABS, 1 UNIT PRBC ORDERED. NO OTHER CHANGES, WILL REPORT TO DAY SHIFT RN.
[2024-07-12 14:19] LABS: Hematocrit 22.7 % (33.0-51.0); Hemoglobin 7.6 g/dL (11.5-16.0)
[2024-07-12 15:04] LABS: D-Dimer, Quantitative 2.41 mg/L FEU (0.00-0.52); Percent Saturation 57.8 % (15.0-50.0)
[2024-07-12] MEDS ORDERED: Lidocaine 2% Viscous Soln 20 ML,Nystatin 100,000 Unit/ml Susp 20 ML,Mag Hydrox/Al Hydro... MT PRN (16:40)
--- NOTE | 2024-07-12 18:08 | NUR ---
SUMMARY PT WILL ANSWER QUESTIONS, SLEEPS MOST OF THE DAY, FOLLOWS COMMANDS. RECEIVED ONE UNIT OF PRBC'S THIS AM. POST TRANSFUSION H&H RESULTS CALLED TO DR. MORRIS. PT HAS BLOOD COMING FROM SORES IN GUM LINE AND LIPS. MOUTH CARE AGREVATES SORES AND CAUSES MORE BLEEDING. DENTAL HYGENIST SAW PT THIS AFTERNOON AND RECOMMENDS TO NOT BRUSH TEETH AT THIS TIME DUE TO MAKING LESIONS WORSE. SHE RECOMMENDS MOISTENING TONGUE WITH SWAB GENTLEY AND GENTLY SWABBING MAGIC MOUTHWASH ON LIPS AND TONGUE. PT HAS EXCORIATION TO PERIAREA THAT IS PAINFUL, HAD ONE LOOSE BM THAT WAS PAINFUL FOR PT. DR. WHARTON SAW PT TODAY AND ORDERED LABS.
[2024-07-13] VITALS (13 sets, daily range): BP systolic 100–124; BP diastolic 58–77
[2024-07-13 01:24] LABS: KEPPRA (LEVETIRACETAM) 10 ug/mL (10-40)
--- NOTE | 2024-07-13 04:59 | NUR ---
SHIFT SUMMARY 73 YR F TRANSFERED FROM PCU TO MEDICAL FLOOR AT 0140 THIS SHIFT. FULL CODE. NO ACUTE CHANGES. PT HAS BEEN ASLEEP SINCE ARRIVING TO THIS UNIT. SHE HAD DRIED BLOOD ON THE INSIDE OF HER LIPS FROM LESIONS IN HER MOUTH. SHE IS CURRENTLY RUNNING LR @ 100. EDEN IS PATENT AND DRAINING WELL. BED IN LOW POSITION AND CALL IAN DANIELSON.
[2024-07-13 07:53] LABS: Bun/Creatinine Ratio 30.2 (12.0-20.0); Calcium, Blood 7.7 mg/dL (8.5-10.1); Creatinine, Blood 0.96 mg/dL (0.40-1.00); Potassium, Blood 3.7 mmol/L (3.5-5.5)
[2024-07-13 08:05] LABS: BASOPHILS ABSOLUTE AUTO 0.01 K/mm3 (0.00-0.23); BASOPHILS PERCENT AUTO 0 % (0-2); EOSINOPHILS PERCENT AUTO 0 % (0-6); Hematocrit 20.6 % (33.0-51.0); Hemoglobin 6.8 g/dL (11.5-16.0); Mean Corpuscular HGB 28.7 pg (26.0-34.0); Mean Corpuscular Volume 87 fL (80-100); Mean Platelet Volume 11.4 fL (9.1-12.4); NRBC ABSOLUTE 0.02 K/mm3 (0.00-0.02); NRBC Auto 0.3 /100 WBC (0.0-0.2); RDW Coefficient Variation 17.8 % (11.7-14.2); RDW Standard Deviation 54.9 fL (35.1-46.3); Red Blood Cell Count 2.37 M/mm3 (3.80-5.20); White Blood Cell Count 7.44 K/mm3 (4.00-11.30)
[2024-07-13 08:08] LABS: IMMATURE GRAN ABSOLUTE AUTO 0.06 K/mm3 (0.00-0.10); IMMATURE GRAN PERCENT AUTO 1 % (0-1); LYMPHOCYTES ABSOLUTE AUTO 0.58 K/mm3 (0.84-5.20); LYMPHOCYTES PERCENT AUTO 8 % (21-46); MONOCYTES ABSOLUTE AUTO 0.05 K/mm3 (0.16-1.47); MONOCYTES PERCENT AUTO 1 % (4-13); NEUTROPHILS ABSOLUTE AUTO 6.74 K/mm3 (1.96-9.15); NEUTROPHILS PERCENT AUTO 91 % (41-73)
[2024-07-13 08:12] LABS: Platelet Count 12 K/mm3 (150-400)
[2024-07-13] MEDS ORDERED: IMMUN GLOB G(IGG)/PRO/IGA 0-50 100 ML IV SCH ×2 (09:10→18:00)
--- NOTE | 2024-07-13 14:03 | NUR ---
ASSESSED PATIENT. PRINTED POLST, REFLECTED DNR AND LIMITED. DISCUSSED WITH DELFINO AND SHE VERIFIED THAT THIS STILL REFLECTS HER WISHES. WE HAD A THERAPUTIC CONVERSATIONS ABOUT HOW THINGS HAVE BEEN GOING FOR HER SINCE HER LAST ADMISSION. SHE REPORTED THAT HER APPETITE HAD BEEN IMPROVED FOR A BIT BUT THEN SEEMED TO DECREASE. DISCUSSED CASE WITH DIETITION AND REVIEWED DISCUSSIONS THAT OCCURED THE LAST TIME THE PATIENT WAS HERE. PC WILL CONTINUE TO PROVIDE SUPPORT.
--- NOTE | 2024-07-13 18:13 | NUR ---
SHIFT SUMMARY PT AOX3, CONFUSED AT TIMES. BR AT THIS TIME, PT REPOSITIONED THROUGHOUT THE SHIFT. PT RECIEVED PRBC AND PLATELETS TODAY. TOLERATED IT WELL. ORAL CARE PROVIDED THROUGHOUT THE SHIFT. DRESSINGS APPLIED TO HER HEELS. NO EVENTS PER TELE. PT PLEASANT AND COOPERATIVE WITH CARE. AZIZA CARE DONE. MULTIPLE FAMILY MEMBERS AT THE BS. MEDICATED FOR PAIN PER THE EMAR. CALL LIGHT WITHIN REACH, BED LOCKED AND IN THE LOWEST POSITION. WILL REPORT TO ONCOMING NURSE.
[2024-07-13 18:57] LABS: Hematocrit 24.2 % (33.0-51.0); Hemoglobin 8.2 g/dL (11.5-16.0)
[2024-07-14] VITALS (13 sets, daily range): BP systolic 106–120; BP diastolic 61–73
--- NOTE | 2024-07-14 06:10 | NUR ---
SHIFT SUMMARY 73 YR F ADMITTED ON 07/11/24. DNR. NO ACUTE CHANGES THIS SHIFT. PT RECEIVED PRIVEGEN THAT WAS TYTRATED Q 30 MIN PER CHART GIVEN BY DAY SHIFT NURSE. VITALS DONE AT EACH TITRATION AND BP REMAINED WNL. PT HAD NO C/O PAIN OR DISCOMFORT THIS SHIFT. AFEBRILE. SHE HAS SLEPT FOR MOST OF THE SHIFT. EDEN IS PATENT AND DRAINING WELL. BED IN LOW POSITION AND CALL LIGHT IN REACH.
[2024-07-14 06:41] LABS: BASOPHILS PERCENT AUTO 0 % (0-2); EOSINOPHILS PERCENT AUTO 0 % (0-6); Hematocrit 22.5 % (33.0-51.0); Hemoglobin 7.5 g/dL (11.5-16.0); IMMATURE GRAN ABSOLUTE AUTO 0.05 K/mm3 (0.00-0.10); IMMATURE GRAN PERCENT AUTO 1 % (0-1); LYMPHOCYTES ABSOLUTE AUTO 0.35 K/mm3 (0.84-5.20); LYMPHOCYTES PERCENT AUTO 6 % (21-46); MONOCYTES ABSOLUTE AUTO 0.04 K/mm3 (0.16-1.47); MONOCYTES PERCENT AUTO 1 % (4-13); Mean Corpuscular HGB 29.2 pg (26.0-34.0); Mean Corpuscular HGB Conc 33.3 g/dL (31.5-36.5); Mean Corpuscular Volume 88 fL (80-100); Mean Platelet Volume 10.6 fL (9.1-12.4); NEUTROPHILS ABSOLUTE AUTO 5.77 K/mm3 (1.96-9.15); NEUTROPHILS PERCENT AUTO 93 % (41-73); NRBC ABSOLUTE 0.03 K/mm3 (0.00-0.02); NRBC Auto 0.5 /100 WBC (0.0-0.2); RDW Coefficient Variation 16.5 % (11.7-14.2); RDW Standard Deviation 51.8 fL (35.1-46.3); Red Blood Cell Count 2.57 M/mm3 (3.80-5.20); White Blood Cell Count 6.21 K/mm3 (4.00-11.30)
[2024-07-14 07:03] LABS: Bun/Creatinine Ratio 42.1 (12.0-20.0); Calcium, Blood 7.7 mg/dL (8.5-10.1); Creatinine, Blood 0.97 mg/dL (0.40-1.00); Potassium, Blood 3.7 mmol/L (3.5-5.5)
[2024-07-14 07:10] LABS: Platelet Count 15 K/mm3 (150-400)
[2024-07-14] MEDS ORDERED: HYDROmorphone HCl/Pf 1MG SYR IV PRN (10:50)
[2024-07-14] MEDS ORDERED: FentaNYL Citrate 50 MCG/ML 2 ML Injection IV PRN (10:55)
[2024-07-14] MEDS ORDERED: Potassium Chl 20MEQ/Water100ML 100 ML IV SCH (11:00)
[2024-07-14] MEDS ORDERED: IMMUN GLOB G(IGG)/PRO/IGA 0-50 100 ML IV SCH (13:00)
[2024-07-14 13:12] LABS: HEP-IND THROMBOCYTOPEN PF4,IGG 0.033 OD (<=0.399)
--- NOTE | 2024-07-14 16:51 | NUR ---
POSITIVE BLOOD CULTURES FOR GRAM + COCCI IN CLUSTERS. DR ZHENG NOTIFIED HE WILL ORDER IV ABX. PT CURRRENTLY INFUSING IVIG, AND HAS SEVERAL MORE HOURS OF THAT MD AWARE.
[2024-07-14] MEDS ORDERED: Vancomycin HCL 2,000 MG in NS 500 ML IV ONE (17:25)
[2024-07-14] MEDS ORDERED: CefTRIAXone Sodium 1,000 MG in NS 100 ML IV SCH (18:00)
--- NOTE | 2024-07-14 18:35 | NUR ---
SHIFT SUMMARY- PT STARTED ON THE IVIG. PER PHARMACY OK TO START WHERE THEY LEFT OFF ON THE DOSE TITRATION LAST NIGHT. STARTED BELOW THAT BUT SHE C/O A LITTLE SOB. TURNED THE RATE TO 24 AND BEGAN THE TITRATION AT THE BOTTOM AND WORKED UP. THE PT IS CURRENTLY RUNNING 120ML/HR AND SEEMS TO BE TOLLERATING IT WELL. PT BECAME CONFUSED AT AROUND 1700 AND BEGAN REMOVING ALL BANDAGES AND SCRATCHING AND PULLING AT HER SKIN, WITCH BREAKS EASILY. HER BED WAS FILLED WITH DRESSINGS AND BLOOD SMEAR. LINNEN CHANGE COMPLETED AND THE PT WAS WASHED AND REDRESSED, PIV WAS REMOVED IT WAS NOT PATENT ANYMORE. SHE IS RUNNING THE IVIG THROUGH THE EXTENDED DWELL, DRESSING CHANGE WAS DONE FOR THAT THE PT WAS REMOVING THE DRESSING FOR THAT TOO. THE GROOVING LATHE TENDER HAD THIS PT YESTERDAY STATED SHE BECAME A LITTLE CONFUSED YESTERDAY AT 1700 WELL. PT IS CURRENTLY IN BED, CALL LIGHT IN REACH, BED ALARM FOR SAFETY, VSS AND NO S&S OF DISTRESS NOTED.
[2024-07-14] MEDS ORDERED: BUPROPION XL150 M1 PO (19:59)
[2024-07-15] VITALS (23 sets, daily range): BP systolic 108–129; BP diastolic 64–87
[2024-07-15 05:45] LABS: BASOPHILS PERCENT AUTO 0 % (0-2); EOSINOPHILS ABSOLUTE AUTO 0.05 K/mm3 (0.00-0.68); EOSINOPHILS PERCENT AUTO 2 % (0-6); Hematocrit 20.2 % (33.0-51.0); Hemoglobin 6.8 g/dL (11.5-16.0); IMMATURE GRAN ABSOLUTE AUTO 0.03 K/mm3 (0.00-0.10); IMMATURE GRAN PERCENT AUTO 1 % (0-1); LYMPHOCYTES ABSOLUTE AUTO 0.83 K/mm3 (0.84-5.20); LYMPHOCYTES PERCENT AUTO 24 % (21-46); MONOCYTES ABSOLUTE AUTO 0.08 K/mm3 (0.16-1.47); MONOCYTES PERCENT AUTO 2 % (4-13); Mean Corpuscular HGB 29.6 pg (26.0-34.0); Mean Corpuscular HGB Conc 33.7 g/dL (31.5-36.5); Mean Corpuscular Volume 88 fL (80-100); NEUTROPHILS ABSOLUTE AUTO 2.44 K/mm3 (1.96-9.15); NEUTROPHILS PERCENT AUTO 71 % (41-73); RDW Coefficient Variation 16.4 % (11.7-14.2); RDW Standard Deviation 51.8 fL (35.1-46.3); White Blood Cell Count 3.43 K/mm3 (4.00-11.30)
[2024-07-15 06:08] LABS: Platelet Count 3 K/mm3 (150-400)
[2024-07-15 06:41] LABS: Albumin/Globulin Ratio 0.5 (0.8-1.8); Bilirubin, Total 0.4 mg/dL (0.1-1.0); Bun/Creatinine Ratio 54.1 (12.0-20.0); Calcium, Blood 7.6 mg/dL (8.5-10.1); Creatinine, Blood 0.74 mg/dL (0.40-1.00); Globulin, Blood 3.7 g/dL (2.2-4.0); Potassium, Blood 3.1 mmol/L (3.5-5.5); Total Protein, Blood 5.7 g/dL (6.4-8.2)
--- NOTE | 2024-07-15 06:57 | NUR ---
SHIFT SUMMARY PT ALERT TO SELF. PLEASANT AND COOPERATIVE OF CARE. PT FINISHED ORDERED IVg MEDICATION PER EMAR AROUND 2029. IV ABX ADMINISTERED. BOTTOM AND AZIZA AREA EXCORIATED. SKIN CLEANED AND BARRIER CREAM APPLIED. FOELY DRAINING TO GRAVITY. VSS. SCD's IN PLACE. NO C/O PAIN. LIDOCAIN MOUTHWASH GIVEN WITH SWAB. SLIGHT BLEEDING NOTED IN GUMS DURING MOUTH CARE AND SEVERAL TIMES A SMALL TRAIL OF BLOOD CLEANED THAT WAS COMING FROM PT'S BOTTOM LIP. CRITICAL PLATLET AND Hgb CALLED BY HEMOTOLOGY. DR. JUÁREZ NOTIFIED AND ORDERS GIVEN. BED ALARM ON. BED IN LOWEST POSITION AND CALL LIGHT IN REACH.
[2024-07-15] MEDS ORDERED: Vancomycin HCL 750 MG in NS 250 ML IV SCH (09:00)
--- NOTE | 2024-07-15 09:52 | NUR ---
CALLED DR MAY- PT IS MORE LETHARGIC THAN PREVIOUS SHIFT. SHE HAS THE ENERGY TO SMILE AND NOD AND MAYBE GIVE ONE WORD ANSWERS AND THEN SHE DRIFTS OFF TO SLEEP AGAIN. PT HAS BLEEDING MOUTH SORES, LEAVING A NEARLY CONSTANT TRICKLE OF BLOOD FROM HER MOUTH, COATED WITH GEL AND PROVIDED THE PT WITH ICE SHE CAN NOT HOLD THE ICE, SHE IS TOO WEAK. ASKED DR ZHENG TO COME SEE THE PT. HE IS AWARE SHE ONLY HAS ONE LINE, SHE CAN NOT HAVE ANOTHER PLACED AT THIS TIME D/T HER BLEEDING RISK. IV KEPPRA GIVEN PRIOR TO RECIEVING THE PLATELETS, RECIEVED OK TO TRANSFUSE THE SECOND UNIT OF PLATELETS WELL, CALLED LAB, A SECOND UNIT WAS ORDERED ALREADY A DUPLICATE. PER DR MAY SECOND UNIT WILL TRANSFUSE. PT HAS 2 UNITS OF PLATELETS FOLLOWED BY 1 UNIT OF PRBC'S, IV VANCO IS ON HOLD UNTIL TRANSFUSIONS ARE COMPLETED. DR ZHENG IS AWARE AND AGREES WITH THE ORDER OF INFUSION. PT LUNG SOUNDS ARE DIM AND COARSE, MAYBE WHEEZY IN THE BASES BUT DIFFICULT TO HEAR. PT WAKES COUGHING OFTEN, STATES SHE FEELS LIKE SHE IS CHOKING. VERBAL ORDER RECIEVED TO TRANSFER THE PT TO PCU SHE IS CRITICALLY ILL, AND REQUIRES CLOSER MONITORING.
--- NOTE | 2024-07-15 10:06 | NUR ---
DR ZHENG AT THE BEDSIDE- PT WOKE TO TALK TO HIM. DEFINATELY WEAKER. SHE DIRFTED OFF SOON HE WALKED OUT. PLATELETS INFUSING, RESP RATE INCREASED ON VITALS, HOWEVER IT SEEMS TO BE RETURNING TO NORMAL. BREATH SOUNDS ARE UNCHANGED FROM PREVIOUS
--- NOTE | 2024-07-15 10:21 | NUR ---
CALLED PHARMACY- SPOKE TO MANDO SHERMAN. PT HAS CRITICAL LOW PLATELETS, UNABLE TO RUN VANCO UNTIL PLATELETS AND PRBC'S ARE TRANSFUSED. UNABLE TO TRY FOR A NEW LINE D/T RISK FOR BLEEDING. AWARE. MANDO AWARE. WHEN THE IV VANCO IS STARTED THE RN THAT STARTS IT SHOULD CALL PHARMACY SO FUTURE DOSES CAN BE RETIMED AND TROUGH CAN BE RETIMED
--- NOTE | 2024-07-15 11:08 | NUR ---
RATE INCREASED- PT SEEMS TO BEW TOLLERATING THE PLATELETS WELL. VSS. SHE IS STILL LETHARGIC, BUT THE BLOOD RUNNING FROM HER MOUTH HAS STOPPED FOR THE MOMENT. BP IS UP A LITTLE FROM PREVIOUS, TEMP WNL.
--- NOTE | 2024-07-15 13:18 | NUR ---
SECOND UNIT OF PLATELETS STARTED- FIRST UNIT COMPLETED NEW BAG OF SALINE STARTED WITH A NEW BAG OF PLATELETS. STARTED WITH A RATE OF 50. PT TOLLERATED WELL. STAFF ROLLED HER UP AND USED WARM SOAPY WATER TO CLEAN HER AZIZA AREA. PT POSITIONED UP HIGH ON HER LEFT SIDE WITH HER BOTTOM EXPOSED TO THE AIR FOR A BIT IT APPEARS TO HAVE WORSENED SINCE YESTERDAY. HER THIGHS WERE MORE ENLARGED TODAY WELL WITH PITTING EDEMA. PT WAS ALERT DURING THIS ACTIVITY, ROM DONE WITH HER LEGS TO AID IN HELPING WITH JOINT DISCOMFORT. SCD'S WERE DISCONTINUED AT THIS TIME TO PREVENT SKIN BREAKDOWN RELATED TO HER EXTREME EDEMA WITH THE LOW PLATELETS.
--- NOTE | 2024-07-15 14:48 | NUR ---
CALLED DR ZHENG. PT HAS RECIEVED 2 UNITS OF PLATELETS AND SHE IS BECOMING MORE ALERT. VSS AND VISIBLE BLEEDING HAS STOPPED. OK TO GIVE IV VANCO NOW THAT RUNS FOR 1 HOUR THEN WILL REQUEST THE PRBC FROM THE BLOOD BANK.
--- NOTE | 2024-07-15 16:00 | NUR ---
V-TACH- PT HAD AN 8 BEAT RUN OF VTACH. CALLED DR ZHENG. RATE WAS IN THE 150'S AT THE TIME OF THE EVENT. PT DENIED SOB OR CHEST PAIN AT THE TIME VSS. PT REPOSITIONED TO HER BACK FROM LEFT SIDE LYING. O2 SATS WERE LOW 90's ON THE LEFT SIDE. 97% AFTER REPOSITION. PT STATES SHE FEELS BETTER IN THAT SPOT. RECIEVED AN ORDER FOR 20MEQ OF IV POTASSIUM AFTER THE BLOOD TRANSFUSION.
[2024-07-15] MEDS ORDERED: Potassium Chloride 10 Meq Tablet SA PO SCH (17:00)
--- NOTE | 2024-07-15 19:47 | NUR ---
SHIFT SUMMARY- PT ALERT AND ORIENTED. SHE HAS BEEN RECIEVING VS ALL SHIFT FOR TRANSFUSION OF PLATELETS AND PRBC'S. PER MD ORDER 20MEQ OF IV POTASSIUM WILL BE GIVEN TIS EVENING ONCE THE BLOOD TRANSFUSION IS COMPLETED. PT WAS REPOSITIONED Q2 T/O THE DAY SHE DOES NOT TOLLERATE BEING ON HER LEFT SIDE VERY WELL. PASSED ON TO NIGHT RN IN BEDSIDE REPORT. PT LAYING IN BED, CALL LIGHT IN REACH NO S&S OF DISTRESS NOTED.
[2024-07-15] MEDS ORDERED: Potassium Chl 20MEQ/Water100ML 100 ML IV ONE (19:55)
[2024-07-16] MEDS ORDERED: Vancomycin HCL 750 MG in NS 250 ML IV SCH (03:00)
--- NOTE | 2024-07-16 04:14 | NUR ---
SHIFT SUMMARY PT ALERT TO SELF. PT FINISHED 1 UNIT OF PACKED RBC AROUND 193. VITAL SIGNS REMAINED STABLE. NO SIGNS OF BLEEDING. Q2 TURNS. EDEN DRAINING TO GRAVITY. POTASSIUM CHLORIED 20MEQ GIVEN PER EMAR. PT REMAINS ON 2L OF OXYGEN AND SATING >95%. NO EVENTS ON TELE, PT IS NSR IN THE 70's. BED IN LOWEST POSITION AND CALL LIGHT IN REACH.
[2024-07-16 05:40] VITALS: BP 125/81
[2024-07-16 07:01] LABS: BASOPHILS PERCENT AUTO 0 % (0-2); EOSINOPHILS ABSOLUTE AUTO 0.26 K/mm3 (0.00-0.68); EOSINOPHILS PERCENT AUTO 11 % (0-6); Hematocrit 26.2 % (33.0-51.0); Hemoglobin 8.7 g/dL (11.5-16.0); IMMATURE GRAN ABSOLUTE AUTO 0.05 K/mm3 (0.00-0.10); IMMATURE GRAN PERCENT AUTO 2 % (0-1); LYMPHOCYTES ABSOLUTE AUTO 0.57 K/mm3 (0.84-5.20); LYMPHOCYTES PERCENT AUTO 24 % (21-46); MONOCYTES PERCENT AUTO 8 % (4-13); Mean Corpuscular HGB 29.4 pg (26.0-34.0); Mean Corpuscular HGB Conc 33.2 g/dL (31.5-36.5); Mean Corpuscular Volume 89 fL (80-100); Mean Platelet Volume 11.4 fL (9.1-12.4); NEUTROPHILS PERCENT AUTO 55 % (41-73); RDW Coefficient Variation 16.2 % (11.7-14.2); RDW Standard Deviation 51.3 fL (35.1-46.3); Red Blood Cell Count 2.96 M/mm3 (3.80-5.20); White Blood Cell Count 2.38 K/mm3 (4.00-11.30)
[2024-07-16 07:25] LABS: Platelet Count 16 K/mm3 (150-400)
[2024-07-16 07:30] LABS: Bun/Creatinine Ratio 39.9 (12.0-20.0); Calcium, Blood 7.5 mg/dL (8.5-10.1); Creatinine, Blood 0.7 mg/dL (0.40-1.00); Potassium, Blood 3.5 mmol/L (3.5-5.5)
[2024-07-16] MEDS ORDERED: FILGRASTIM-AYOW 300 MCG/0.5 ML SYRINGE SC SCH (12:00)
[2024-07-16] MEDS ORDERED: Petrolatum Ointment 5 gm TOP SCH (14:55)
[2024-07-16 15:15] LABS: Vancomycin, Trough 20.9 ug/mL (5.0-10.0)
[2024-07-16 15:58] VITALS: BP 118/85
--- NOTE | 2024-07-16 19:18 | NUR ---
SHIFT SUMMARY- PT ALERT AND ORIENTED AND MORE ALERT THIS EVENING WHEN COMPARED TO YESTERDAY OR EARLIER TODAY. PT IN BED, CALL LIGHT IN REACH AT THE TIME OF BEDSIDE REPORT. PT WAS TURNED Q2 T/O THE DAYSHE HAD ONE VERY LARGE LIQUID STOOL AND HAD A BED BATH TODAY. NEW CREAM FOR HER LIPS SEEMS TO BE HELPING AND THE PT SEEMS A LITTLE LESS PAINFULL THIS EVENING. PASSED ON IN BEDSIDE REPORT TO NIGHT MARIS MEIER. PT SITTING UP IN BED WIDE AWAKE FOR HER.
[2024-07-16 19:27] VITALS: BP 128/78
[2024-07-16] MEDS ORDERED: Vancomycin HCL 1,250 MG in NS 250 ML IV SCH (21:00)
[2024-07-16 21:01] LABS: ALBUMIN 2.36 g/dL (3.75-5.01); ALPHA 1 GLOBULIN 0.41 g/dL (0.19-0.46); ALPHA 2 GLOBULIN 0.59 g/dL (0.48-1.05); BETA GLOBULIN 0.78 g/dL (0.48-1.10); GAMMA 0.66 g/dL (0.62-1.51); IMMUNOFIXATION REFLEX Not Done; TOTAL PROTEIN,SERUM 4.8 g/dL (6.3-8.2)
[2024-07-17 03:56] VITALS: BP 124/93
--- NOTE | 2024-07-17 05:30 | NUR ---
Patient alert and oriented x2-3, VSS, resting comfortably in bed on 2L oxygen. Powerglide to right upper arm intact, infusing appropriately. Patient impulsively removing telemetry, pulse oximeter, wound dressings, clothing frequently overnight, redirection attempted. Tate catheter in place, draining appropriately.
[2024-07-17 07:13] LABS: BASOPHILS ABSOLUTE AUTO 0.01 K/mm3 (0.00-0.23); BASOPHILS PERCENT AUTO 0 % (0-2); EOSINOPHILS PERCENT AUTO 16 % (0-6); Hematocrit 29.2 % (33.0-51.0); Hemoglobin 9.8 g/dL (11.5-16.0); IMMATURE GRAN PERCENT AUTO 5 % (0-1); LYMPHOCYTES ABSOLUTE AUTO 1.27 K/mm3 (0.84-5.20); LYMPHOCYTES PERCENT AUTO 15 % (21-46); MONOCYTES ABSOLUTE AUTO 1.06 K/mm3 (0.16-1.47); MONOCYTES PERCENT AUTO 12 % (4-13); Mean Corpuscular HGB 29.8 pg (26.0-34.0); Mean Corpuscular HGB Conc 33.6 g/dL (31.5-36.5); Mean Corpuscular Volume 89 fL (80-100); NEUTROPHILS ABSOLUTE AUTO 4.62 K/mm3 (1.96-9.15); NEUTROPHILS PERCENT AUTO 53 % (41-73); RDW Coefficient Variation 16.4 % (11.7-14.2); Red Blood Cell Count 3.29 M/mm3 (3.80-5.20); White Blood Cell Count 8.76 K/mm3 (4.00-11.30)
[2024-07-17 07:31] VITALS: BP 132/76
[2024-07-17 07:42] LABS: Platelet Count 10 K/mm3 (150-400)
[2024-07-17] MEDS ORDERED: Petrolatum Ointment 5 gm TOP SCH (09:00)
[2024-07-17 11:40] VITALS: BP 112/73
[2024-07-17 16:19] VITALS: BP 134/84
--- NOTE | 2024-07-17 19:18 | NUR ---
END OF SHIFT SUMMARY: A&Ox3-4. PLEASANT AND COOPERATIVE WITH CARE. CALLS APPROPRIATELY AND IS ABLE TO ADVOCATE NEEDS EFFECTIVELY. BEDREST. INCONTINENT OF BOWEL; BM LIQUID, BROWN STOOL TODAY. EDEN FOR SACRAL WOUNDS; PATENT AND DRAINING YELLOW URINE TO GRAVITY. MEDS CRUSHED WITH APPLESAUCE. TELE AFIB IN s. NO C/O PAIN OR DISCOMFORT. BANDAGES TO BUE; NO WOUND CARE ORDERS. MEPILEX PLACED TO SACRUM AND BILATERAL HEELS. CRITICAL PLATELET LEVEL OF 10 TODAY; REPLACED WITH ONE UNIT PLATELETS. PG CYDNEY FLUSHES; DOES NOT DRAW. BED IN LOWEST POSITION. CALL LIGHT WITHIN REACH. ALL NEEDS MET. REPORT TO ONCOMING NURSE.
[2024-07-17 19:19] VITALS: BP 131/89
[2024-07-17] MEDS ORDERED: LevETIRAcetam 500 MG Tab PO SCH (21:00)
[2024-07-18 02:40] VITALS: BP 125/92
--- NOTE | 2024-07-18 05:24 | NUR ---
Shift Summary Pt slept well t/o the night, no acute events. On tele running AFIB 100-130. Replaced bandage on ANNE MARIE. Heels are wrapped in mepilex and elevated off the bed. Pt is on bedrest. No BM tonight. Tate patent and draining yellow urine. Rcving IV ABX as ordered.
[2024-07-18 07:10] LABS: Hematocrit 30.7 % (33.0-51.0); Hemoglobin 10.3 g/dL (11.5-16.0); Mean Corpuscular HGB 30.3 pg (26.0-34.0); Mean Corpuscular HGB Conc 33.6 g/dL (31.5-36.5); Mean Corpuscular Volume 90 fL (80-100); NRBC ABSOLUTE 0.03 K/mm3 (0.00-0.02); NRBC Auto 0.2 /100 WBC (0.0-0.2); Platelet Count 63 K/mm3 (150-400); RDW Coefficient Variation 17.1 % (11.7-14.2); RDW Standard Deviation 53.4 fL (35.1-46.3); White Blood Cell Count 14.65 K/mm3 (4.00-11.30)
[2024-07-18 07:24] LABS: Bun/Creatinine Ratio 29.7 (12.0-20.0); Creatinine, Blood 0.57 mg/dL (0.40-1.00); Potassium, Blood 3.2 mmol/L (3.5-5.5)
[2024-07-18 07:27] VITALS: BP 124/77
[2024-07-18 07:30] LABS: Mean Platelet Volume 13.5 fL (9.1-12.4)
[2024-07-18 09:00] LABS: BAND PERCENT MAN 3 % (0-8); BASOPHILS PERCENT MAN 0 % (0-2); EOSINOPHILS ABSOLUTE MAN 1.02 K/mm3 (0.00-0.68); EOSINOPHILS PERCENT MAN 7 % (0-6); LYMPHOCYTES ABSOLUTE MAN 3.07 K/mm3 (0.84-5.20); LYMPHOCYTES PERCENT MAN 21 % (21-46); METAMYELOCYTE ABSOLUTE MAN 0.43 K/mm3 (0.00-0.00); METAMYELOCYTE PERCENT MAN 3 % (0-0); MONOCYTES ABSOLUTE MAN 2.19 K/mm3 (0.16-1.47); MONOCYTES PERCENT MAN 15 % (4-13); NEUTROPHILS ABSOLUTE MAN 7.91 K/mm3 (1.96-9.15); SEG NEUTROPHILS PERCENT MAN 51 % (41-73); TOTAL CELLS COUNTED 100
[2024-07-18] MEDS ORDERED: Lidocaine 2% Viscous Soln 20 ML,Nystatin 100,000 Unit/ml Susp 20 ML,Mag Hydrox/Al Hydro... MT PRN (11:15)
[2024-07-18 15:48] VITALS: BP 113/66
--- NOTE | 2024-07-18 18:33 | NUR ---
END OF SHIFT SUMMARY: A&Ox4, THOUGH DROWSY AND DIFFICULT TO ROUSE AT TIMES. PLEASANT AND COOPERATIVE WITH CARE. DOES NOT USE CALL LIGHT OR ADVOCATE NEEDS. NONCONTRIBUTORY TO CARE AND UNMOTIVATED TO PARTICIPATE. EDEN IN PLACE SECONDARY TO SACRAL EXCORIATIONS AND A FEW OPEN AREAS. INCONTINENT OF BOWEL; BM TODAY. TELE AFIB <--> SINUS AND DC'd. NO C/O PAIN OR DISCOMFORT AND NO PHYSICAL INDICATION OF PAIN. IN TO VISIT TODAY. BED IN LOWEST POSITION. CALL LIGHT WITHIN REACH. ALL NEEDS MET. REPORT TO ONCOMING NURSE.
[2024-07-18 19:50] VITALS: BP 118/82
[2024-07-19 03:08] VITALS: BP 112/73
[2024-07-19 05:34] LABS: Hematocrit 27.3 % (33.0-51.0); Hemoglobin 9.1 g/dL (11.5-16.0); Mean Corpuscular HGB 29.7 pg (26.0-34.0); Mean Corpuscular HGB Conc 33.3 g/dL (31.5-36.5); Mean Corpuscular Volume 89 fL (80-100); Mean Platelet Volume 11.6 fL (9.1-12.4); NRBC ABSOLUTE 0.04 K/mm3 (0.00-0.02); NRBC Auto 0.2 /100 WBC (0.0-0.2); Platelet Count 145 K/mm3 (150-400); RDW Standard Deviation 53.3 fL (35.1-46.3); Red Blood Cell Count 3.06 M/mm3 (3.80-5.20); White Blood Cell Count 20.99 K/mm3 (4.00-11.30)
[2024-07-19 05:58] LABS: Anion Gap 9 mmol/L (3-11); Blood Urea Nitrogen 13 mg/dL (8-24); Bun/Creatinine Ratio 22.3 (12.0-20.0); CO2, Blood 27 mmol/L (21-32); Calcium, Blood 8.2 mg/dL (8.5-10.1); Chloride, Blood 111 mmol/L (98-108); Creatinine, Blood 0.58 mg/dL (0.40-1.00); Glomerular Filtration Rate 95 (60-); Glucose, Blood 74 mg/dL (70-99); Potassium, Blood 3.3 mmol/L (3.5-5.5); Sodium, Blood 144 mmol/L (136-145); Vancomycin, Random 15.2 ug/mL
[2024-07-19 06:04] LABS: BAND PERCENT MAN 15 % (0-8); BASOPHILS PERCENT MAN 0 % (0-2); EOSINOPHILS ABSOLUTE MAN 0.83 K/mm3 (0.00-0.68); EOSINOPHILS PERCENT MAN 4 % (0-6); LYMPHOCYTES % ATYPICAL MANUAL 1 % (0-0); LYMPHOCYTES ABSOLUTE MAN 4.19 K/mm3 (0.84-5.20); LYMPHOCYTES PERCENT MAN 19 % (21-46); METAMYELOCYTE PERCENT MAN 1 % (0-0); MONOCYTES ABSOLUTE MAN 2.93 K/mm3 (0.16-1.47); MONOCYTES PERCENT MAN 14 % (4-13); MYELOCYTE ABSOLUTE MAN 0.62 K/mm3 (0.00-0.00); MYELOCYTE PERCENT MAN 3 % (0-0); NEUTROPHILS ABSOLUTE MAN 12.17 K/mm3 (1.96-9.15); SEG NEUTROPHILS PERCENT MAN 43 % (41-73); TOTAL CELLS COUNTED 100
--- NOTE | 2024-07-19 06:26 | NUR ---
SHIFT SUMMARY PT A&OX3-4 AND ANSWERS QUESTIONS APPROPRIATELY. PT RECEIVED SCHEDULED AND PRN MEDICATION WITH NO ADVERSE REACTIONS. PT VANCO TROUGH SHOWED A LEVEL OF 24.0, HS DOSE OF VANCOMYCIN HELD PER PHARMACY. VSS, NO COMPLAINTS OF CP/PRESSURE. PT SPENT MOST OF SHIFT IN BED WITH EYES CLOSED AND RESPIRATIONS EVEN AND UNLABORED. CATH CARE PROVIDED. PT REPOSITIONED Q2HRS. NO ACUTE EVENTS AT THIS TIME. PT LEFT IN A POSITION OF SAFETY WITH FALL PRECAUTIONS IN PLACE AND CALL LIGHT IN REACH.
[2024-07-19 07:06] VITALS: BP 114/82
[2024-07-19] MEDS ORDERED: Vancomycin HCL 1,250 MG in NS 250 ML IV SCH (08:00)
--- NOTE | 2024-07-19 14:17 | NUR ---
Pt's Marco states he is unable to care for her and is planning on applying for medicaid for her. He states he has been working with an contract attorney on becoming her official POA, and to put other affairs in order. The contract attorney has already advised him of how to apply for medicaid. Will check in with CM.
[2024-07-19 14:59] VITALS: BP 128/77
[2024-07-19] MEDS ORDERED: CeFAZolin Sodium 2,000 MG in NS 100 ML IV SCH (16:00)
[2024-07-19 19:18] VITALS: BP 104/61
--- NOTE | 2024-07-19 19:31 | NUR ---
SHIFT SUMMARY- PT ALERT AND ORIENTED TO SELF. SHE HAS HAD SOME DIFFICULTY WITH FOLLOWING INSTRUCTIONS. SHE IS CHEWING WELL. THIS MORNING SHE CHEWED HER MEDS THAT WERE NOT ABLE TO BE CRUSHED SHE DID NOT SEEM TO UNDERSTAND SHE WAS NOT SUPPOSED TO CHEW THEM. SHE DID HOWEVER EAT A WHOLE PUDDING AND DRANK A FULL ENSURE WITH THE ATTEMPT TO SWALLOW THEM. PT WAS REPOSITIONED Q2 T/O THE DAY. SHE STRIPPED SEVERAL TIMES, SHE PULLED OUT HER POWERGLIDE IN THE CYDNEY THIS EVENING, STAFF WENT TO START IV ABX AND SHE PLEASENTLY HANDED THE POWERGLIDE OVER. SHE SEEMED PLEASENTLY CONFUSED. BEDSIDE REPORT COMPLETED WITH NIGHT RN AT THE BEDSIDE. PER THE RECOMENDATION OF PT AND OT THE PT IS GOING TO BE MOVED TO ROOM 31 FOR THE LIFT. PT IN BED, CALL LIGHT IN REACH NO S&S OF DISTRESS NOTED AT THE TIME OF BEDSIDE REPORT.
[2024-07-20 04:27] VITALS: BP 115/70
[2024-07-20 06:02] LABS: Hematocrit 26.3 % (33.0-51.0); Hemoglobin 8.8 g/dL (11.5-16.0); Mean Corpuscular HGB 29.9 pg (26.0-34.0); Mean Corpuscular HGB Conc 33.5 g/dL (31.5-36.5); Mean Corpuscular Volume 90 fL (80-100); Mean Platelet Volume 10.8 fL (9.1-12.4); Platelet Count 161 K/mm3 (150-400); RDW Coefficient Variation 17.4 % (11.7-14.2); RDW Standard Deviation 54.8 fL (35.1-46.3); Red Blood Cell Count 2.94 M/mm3 (3.80-5.20); White Blood Cell Count 18.62 K/mm3 (4.00-11.30)
[2024-07-20 06:28] LABS: Creatinine, Blood 0.94 mg/dL (0.40-1.00); Potassium, Blood 3.4 mmol/L (3.5-5.5)
--- NOTE | 2024-07-20 06:58 | NUR ---
SHIFT SUMMARY PT ALERT TO SELF. PT MOVED TO ROOM WITH LIFT. TURNED Q2. NEW PICTURES IN CHART OF BUTTOCK AND LEFT HEEL. IV ABX GIVEN PER EMAR. REMAINS ON 2L OF HUMIDIFIED O2. PT DOES PULL AT LINES AND OXYGEN. VSS. BED IN LOWEST POSITION AND CALL LIGHT IN REACH.
[2024-07-20 07:22] LABS: BAND PERCENT MAN 1 % (0-8); BASOPHILS ABSOLUTE MAN 0.18 K/mm3 (0.00-0.23); BASOPHILS PERCENT MAN 1 % (0-2); BLASTS PERCENT MAN 2 % (0-0); EOSINOPHILS ABSOLUTE MAN 1.11 K/mm3 (0.00-0.68); EOSINOPHILS PERCENT MAN 6 % (0-6); LYMPHOCYTES ABSOLUTE MAN 1.86 K/mm3 (0.84-5.20); LYMPHOCYTES PERCENT MAN 10 % (21-46); METAMYELOCYTE ABSOLUTE MAN 0.37 K/mm3 (0.00-0.00); METAMYELOCYTE PERCENT MAN 2 % (0-0); MONOCYTES ABSOLUTE MAN 2.04 K/mm3 (0.16-1.47); MONOCYTES PERCENT MAN 11 % (4-13); MYELOCYTE ABSOLUTE MAN 0.37 K/mm3 (0.00-0.00); MYELOCYTE PERCENT MAN 2 % (0-0); NEUTROPHILS ABSOLUTE MAN 12.28 K/mm3 (1.96-9.15); SEG NEUTROPHILS PERCENT MAN 65 % (41-73); TOTAL CELLS COUNTED 100
[2024-07-20 07:25] VITALS: BP 127/78
[2024-07-20] MEDS ORDERED: Metoprolol Succinate 25 MG TABCR PO SCH (11:12)
[2024-07-20 11:50] VITALS: BP 126/87
--- NOTE | 2024-07-20 16:23 | NUR ---
SUPPORTIVE VISIT - DELAYED ENTRY FROM THIS MORNING 07/20/24 DR. LOMAS ENTERED TO THE ROOM DURING PC VISIT. ORIGINAL PLAN WAS FOR A [facility] THIS MORNING. HOWEVER, SHE DRANK AN ENSURE THIS MORNING. DR. LOMAS WOULD LIKE TO PROCEED WITH [facility] THIS AFTERNOON. PT IS AGREEABLE. PC TO REMAIN AVAILABLE.
--- NOTE | 2024-07-20 18:53 | NUR ---
SHIFT SUMMARY PT A&O TO SELF. PT CAN NOT RECAL LOCATION. PT ADMITTED DUE TO THROMBOCYTOPENIA. PT REPORTS NO PAIN, PT DOES NOT SHOW SIGNS OF PAIN, ONLY WITH MOVEMENT. PT IS ON 2.5 L OF O2 VIA N/C, WITH HUMIDIFIER. SATS ARE MAINTAINING AT 99%. VSS. SPEECH THERAPY SAW PT, PT ON MINCED AND MOIST DIET. PHYSICAL AND OCCUPATIONAL THERAPY WORKED WITH PT TODAY. PT WAS REPOSITIONED Q2 HR. KAREY WAS D/C. PT RECIEVING ANTIBIOTICS VIA IV. PT WILL BE NPO AT MIDNIGHT FOR ANSON PROCEDURE IN AM. CALL LIGHT IN REACH.
[2024-07-20 19:33] VITALS: BP 118/76
[2024-07-21] VITALS (19 sets, daily range): BP systolic 106–143; BP diastolic 63–98
--- NOTE | 2024-07-21 05:18 | NUR ---
Shift Summary Pt is alert to self. Max assisst to repo in bed or brief change, X2 and bedrest. 2 L O2 via NC which pt frequently takes off. Her buttocks and groin are red with open sores, painful. Pt is incontinent of bowel and bladder which does not help her skin tp heal. Powder applied to red area are cleaning which causes pt to cry out in pain. Heel protecters in place. NPO at midnight for procedure in AM.
[2024-07-21 06:03] LABS: Hematocrit 27.4 % (33.0-51.0); Hemoglobin 8.7 g/dL (11.5-16.0); Mean Corpuscular HGB 28.6 pg (26.0-34.0); Mean Corpuscular HGB Conc 31.8 g/dL (31.5-36.5); Mean Corpuscular Volume 90 fL (80-100); Mean Platelet Volume 10.9 fL (9.1-12.4); Platelet Count 145 K/mm3 (150-400); RDW Coefficient Variation 17.9 % (11.7-14.2); RDW Standard Deviation 56.6 fL (35.1-46.3); Red Blood Cell Count 3.04 M/mm3 (3.80-5.20); White Blood Cell Count 14.29 K/mm3 (4.00-11.30)
[2024-07-21 06:26] LABS: Bun/Creatinine Ratio 18.2 (12.0-20.0); Calcium, Blood 8.2 mg/dL (8.5-10.1); Creatinine, Blood 1.1 mg/dL (0.40-1.00); Potassium, Blood 3.5 mmol/L (3.5-5.5)
[2024-07-21] MEDS ORDERED: Benzocaine Oral Spray 0.5ML UD ONE (06:44)
[2024-07-21] MEDS ORDERED: Midazolam HCl 1MG / ML 2ML Vial ONE ×2 (07:20→07:41)
[2024-07-21 07:21] LABS: BAND PERCENT MAN 10 % (0-8); BASOPHILS PERCENT MAN 0 % (0-2); EOSINOPHILS ABSOLUTE MAN 1.71 K/mm3 (0.00-0.68); EOSINOPHILS PERCENT MAN 12 % (0-6); LYMPHOCYTES ABSOLUTE MAN 1.57 K/mm3 (0.84-5.20); LYMPHOCYTES PERCENT MAN 11 % (21-46); METAMYELOCYTE ABSOLUTE MAN 0.28 K/mm3 (0.00-0.00); METAMYELOCYTE PERCENT MAN 2 % (0-0); MONOCYTES ABSOLUTE MAN 1.42 K/mm3 (0.16-1.47); MONOCYTES PERCENT MAN 10 % (4-13); MYELOCYTE ABSOLUTE MAN 1.42 K/mm3 (0.00-0.00); MYELOCYTE PERCENT MAN 10 % (0-0); NEUTROPHILS ABSOLUTE MAN 7.71 K/mm3 (1.96-9.15); PROMYELOCYTE ABSOLUTE MAN 0.14 K/mm3 (0.00-0.00); PROMYELOCYTE PERCENT MAN 1 % (0-0); SEG NEUTROPHILS PERCENT MAN 44 % (41-73); TOTAL CELLS COUNTED 100
[2024-07-21] MEDS ORDERED: FentaNYL Citrate 50 MCG/ML 2 ML Injection ONE (07:21)
[2024-07-21] MEDS ORDERED: NS 500 ML IV ONE (07:21)
--- NOTE | 2024-07-21 14:43 | NUR ---
CASE CONFERENCE: SPOKE WITH PT'S SON AND TODAY REGARDING PATIENT'S PLAN OF CARE. AT THIS TIME, THE PLAN IS FOR THE PATIENT TO GO TO REHAB FOR IV ANTIBIOTICS X'S 6 WEEKS. FAMILY HAS ALSO APPLIED FOR [facility]. STATES HE IS BECOMING FRAIL AND IS PHYSICALLY UNABLE TO CARE FOR THE PATIENT ANY LONGER. SON IN AGREEMENT.
--- NOTE | 2024-07-21 17:22 | NUR ---
SHIFT SUMMARY PT NOTED TO SLEEP MAJORITY OF THIS SHIFT. PT WOULD OPEN HER EYES AND LOOK AT YOU AND FOLLOW COMMANDS THIS SHIFT. PT NOTED TO BE ASSIST X2 THIS SHIFT AND IS A LIFT PT. PT NOTED TO BE INCONT AND IS ALSO EXCORATED IN [place] AREA TREATED PER EMAR. PT IS NOTED TO NEED ASSISTANCE WITH EATING. PT WAS CHANGED TO A PUREE DIET THIS SHIFT. PT NOTED TO REFUSE TO EAT BUT DOES LIKE ENSURES.
[2024-07-21] MEDS ORDERED: LevETIRAcetam 100 MG/ML 5ML ORAL SYR PO SCH (21:00)
[2024-07-22 04:20] VITALS: BP 129/74
--- NOTE | 2024-07-22 07:27 | NUR ---
AO to self, pt repostioned q 2, heels floated, kept comfortable, asp precautions, fall precautions in place. pt removed Left Piv access, new access started L lateral wrist for administration of abx, tolerated well.
[2024-07-22 07:42] VITALS: BP 125/81
[2024-07-22 08:01] LABS: Hematocrit 27.6 % (33.0-51.0); Hemoglobin 8.9 g/dL (11.5-16.0); Mean Corpuscular HGB 29.4 pg (26.0-34.0); Mean Corpuscular HGB Conc 32.2 g/dL (31.5-36.5); Mean Corpuscular Volume 91 fL (80-100); Mean Platelet Volume 11.4 fL (9.1-12.4); Platelet Count 180 K/mm3 (150-400); RDW Standard Deviation 57.7 fL (35.1-46.3); Red Blood Cell Count 3.03 M/mm3 (3.80-5.20)
[2024-07-22 08:21] LABS: Bun/Creatinine Ratio 17.3 (12.0-20.0); Calcium, Blood 8.1 mg/dL (8.5-10.1); Creatinine, Blood 1.04 mg/dL (0.40-1.00); Potassium, Blood 3.4 mmol/L (3.5-5.5)
[2024-07-22 08:24] LABS: BASOPHILS PERCENT MAN 0 % (0-2); TOTAL CELLS COUNTED 100
[2024-07-22 08:31] LABS: BAND PERCENT MAN 9 % (0-8); EOSINOPHILS PERCENT MAN 0 % (0-6); LYMPHOCYTES ABSOLUTE MAN 3.23 K/mm3 (0.84-5.20); LYMPHOCYTES PERCENT MAN 22 % (21-46); METAMYELOCYTE ABSOLUTE MAN 0.88 K/mm3 (0.00-0.00); METAMYELOCYTE PERCENT MAN 6 % (0-0); MONOCYTES ABSOLUTE MAN 1.61 K/mm3 (0.16-1.47); MONOCYTES PERCENT MAN 11 % (4-13); MYELOCYTE ABSOLUTE MAN 1.17 K/mm3 (0.00-0.00); MYELOCYTE PERCENT MAN 8 % (0-0); NEUTROPHILS ABSOLUTE MAN 7.64 K/mm3 (1.96-9.15); PROMYELOCYTE ABSOLUTE MAN 0.14 K/mm3 (0.00-0.00); PROMYELOCYTE PERCENT MAN 1 % (0-0); SEG NEUTROPHILS PERCENT MAN 43 % (41-73)
[2024-07-22] MEDS ORDERED: Potassium Chloride 20 MEQ/15 ML UDC PO SCH (09:00)
--- NOTE | 2024-07-22 15:30 | NUR ---
Goals of Care: Met with pt's Marco and son Joseph today. They state they want to continue forward with [facility] They are open to hospice if the patient's health fails, but she would likely need placement as pt's is frail and elderly himself.
--- NOTE | 2024-07-22 16:04 | NUR ---
SHIFT SUMMARY: PATIENT A/O TO SELF ONLY, PLEASANTLY CONFUSED AND ABLE TO FOLLOW SIMPLE COMMAND. PATIENT HAS BEEN SLEEPING A LOT TODAY, DENIES GENERALIZED PAIN, CP/PRESSURE, SOB, N/V AND DIZZINESS. PATIENT CURRENTLY ON RA, SATTING 97%. PATIENT 1:1 FEEDER, REFUSED BREAKFAST, LUNCH MEALS, BUT ONLY DRANK ENSURE. PATIENT INCONTINENT OF BOWEL/BLADDER, ATTENDS PLACED AND CHANGED, REPOSITIONED T/O SHIFT. PATIENT RECEIVED IV ABX/SCHEDULED MEDS PER EMAR. VITAL SIGNS REVIEWED. BED ALARM ON FOR SAFETY. CALL LIGHT IN REACH.
[2024-07-22 16:17] VITALS: BP 117/69
[2024-07-22 20:58] VITALS: BP 122/82
[2024-07-22] MEDS ORDERED: Apixaban 5 MG Tab PO SCH (21:00)
[2024-07-23 02:33] VITALS: BP 117/71
[2024-07-23 07:24] LABS: Hematocrit 26.5 % (33.0-51.0); Hemoglobin 8.6 g/dL (11.5-16.0); Mean Corpuscular HGB 29.6 pg (26.0-34.0); Mean Corpuscular HGB Conc 32.5 g/dL (31.5-36.5); Mean Corpuscular Volume 91 fL (80-100); Platelet Count 192 K/mm3 (150-400); RDW Coefficient Variation 18.5 % (11.7-14.2); RDW Standard Deviation 58.4 fL (35.1-46.3); Red Blood Cell Count 2.91 M/mm3 (3.80-5.20); White Blood Cell Count 12.95 K/mm3 (4.00-11.30)
[2024-07-23 07:31] LABS: Bun/Creatinine Ratio 24.1 (12.0-20.0); Creatinine, Blood 0.87 mg/dL (0.40-1.00); Potassium, Blood 3.4 mmol/L (3.5-5.5)
--- NOTE | 2024-07-23 07:35 | NUR ---
a/2-3 pt pleasant, cooperative, talkative, alert watching tv. When asked place she responded " at a facility" but no sure which one, also for situation" I thought I had a stroke" , . Asked for pudding, requested vanilla when offereed choice of vanill or chocalate. Sat upright and was able to self feed, also requested water , w/ two thickeners in 12 oz cup patient drank well w straw, 2 cups during night, able to also hold cup at times. no c/o of pain . Meds tolerated well per emar , iv abx administered, repositioned, fall and aspiration precautions in place, call light wn reach.
[2024-07-23 07:42] VITALS: BP 112/69
[2024-07-23 08:16] LABS: BAND PERCENT MAN 9 % (0-8); BASOPHILS PERCENT MAN 0 % (0-2); EOSINOPHILS ABSOLUTE MAN 0.51 K/mm3 (0.00-0.68); EOSINOPHILS PERCENT MAN 4 % (0-6); LYMPHOCYTES ABSOLUTE MAN 2.71 K/mm3 (0.84-5.20); LYMPHOCYTES PERCENT MAN 21 % (21-46); METAMYELOCYTE ABSOLUTE MAN 0.51 K/mm3 (0.00-0.00); METAMYELOCYTE PERCENT MAN 4 % (0-0); MONOCYTES ABSOLUTE MAN 1.81 K/mm3 (0.16-1.47); MONOCYTES PERCENT MAN 14 % (4-13); MYELOCYTE ABSOLUTE MAN 1.03 K/mm3 (0.00-0.00); MYELOCYTE PERCENT MAN 8 % (0-0); NEUTROPHILS ABSOLUTE MAN 6.34 K/mm3 (1.96-9.15); SEG NEUTROPHILS PERCENT MAN 40 % (41-73); TOTAL CELLS COUNTED 100
[2024-07-23 15:18] VITALS: BP 113/69
--- NOTE | 2024-07-23 17:30 | NUR ---
SHIFT SUMMARY PT CONT LEVEL OF CARE WITH NO ACUTE CHANGES NOTED. PT NOTED TO BE MORE ALERT AND AWAKE TODAY WAS A&O TO SELF AND PLACE. PLAN IS FOR PT TO HAVE PICC PLACED WEDNESDAY AND POSSIBLE DC TO SNF FOR IV ABT TX.
[2024-07-23 20:25] VITALS: BP 115/66
[2024-07-24 04:35] VITALS: BP 119/83
--- NOTE | 2024-07-24 05:35 | NUR ---
ADMITED 07/11/24 WITH TRROMBOCYTOPENIA, WNL NOW. BLOOD CULTURES POSITIVE FOR STAPH. PLAN FOR PICC ON 07/24/22 WITH DC TO SNF. AAO TO SELF AND SOMETIMES PLACE. 2L O2 VIA NC. INCT OF URINE AND BM. 2 LG LOOSE BM'S THAT REQUIRED FULL BED CHANGE DURING SHIFT. BED REST PT IS WEAK IN BLE. NEEDS ASSISTANCE WITH MEALS.
[2024-07-24 05:56] LABS: Hemoglobin 8.4 g/dL (11.5-16.0); Mean Corpuscular HGB 29.2 pg (26.0-34.0); Mean Corpuscular HGB Conc 32.3 g/dL (31.5-36.5); Mean Corpuscular Volume 90 fL (80-100); Mean Platelet Volume 11.7 fL (9.1-12.4); Platelet Count 218 K/mm3 (150-400); RDW Coefficient Variation 18.1 % (11.7-14.2); RDW Standard Deviation 57.4 fL (35.1-46.3); Red Blood Cell Count 2.88 M/mm3 (3.80-5.20); White Blood Cell Count 15.25 K/mm3 (4.00-11.30)
[2024-07-24 06:15] LABS: BAND PERCENT MAN 8 % (0-8); BASOPHILS PERCENT MAN 0 % (0-2); EOSINOPHILS ABSOLUTE MAN 0.15 K/mm3 (0.00-0.68); EOSINOPHILS PERCENT MAN 1 % (0-6); LYMPHOCYTES ABSOLUTE MAN 3.81 K/mm3 (0.84-5.20); LYMPHOCYTES PERCENT MAN 25 % (21-46); METAMYELOCYTE ABSOLUTE MAN 0.61 K/mm3 (0.00-0.00); METAMYELOCYTE PERCENT MAN 4 % (0-0); MONOCYTES ABSOLUTE MAN 3.05 K/mm3 (0.16-1.47); MONOCYTES PERCENT MAN 20 % (4-13); MYELOCYTE ABSOLUTE MAN 0.45 K/mm3 (0.00-0.00); MYELOCYTE PERCENT MAN 3 % (0-0); NEUTROPHILS ABSOLUTE MAN 7.16 K/mm3 (1.96-9.15); SEG NEUTROPHILS PERCENT MAN 39 % (41-73); TOTAL CELLS COUNTED 100
[2024-07-24 06:16] LABS: Bun/Creatinine Ratio 25.6 (12.0-20.0); Calcium, Blood 7.7 mg/dL (8.5-10.1); Creatinine, Blood 0.82 mg/dL (0.40-1.00); Potassium, Blood 3.3 mmol/L (3.5-5.5)
[2024-07-24 07:59] VITALS: BP 103/65
[2024-07-24 15:50] VITALS: BP 118/77
[2024-07-24] MEDS ORDERED: Methotrexate Sod 2.5 MG Tab PO SCH (16:30)
[2024-07-24 19:40] VITALS: BP 120/74
--- NOTE | 2024-07-25 04:57 | NUR ---
PT ADMITTED 07/11/24 WITH THROMBOCYTOPENIA. POSITVE BLOOD CULTURE FOR STAPH. ORIENTED TO SELF. 2L O2 VIA NC. INCONTINENT OF URINE AND BOWELS. BEDREST AND UNALBE TO MOVE LEGS BY SELF WITH TURNING. PLAN FOR DC IS SNF D/T 6 WEEKS OF ANTIBIOTICS. PT IS PLEASANT AND COOPERATIVE WITH CARES.
[2024-07-25 06:29] VITALS: BP 133/83
[2024-07-25 06:31] LABS: Hematocrit 26.1 % (33.0-51.0); Hemoglobin 8.5 g/dL (11.5-16.0); Mean Corpuscular HGB 29.6 pg (26.0-34.0); Mean Corpuscular HGB Conc 32.6 g/dL (31.5-36.5); Mean Corpuscular Volume 91 fL (80-100); Mean Platelet Volume 11.5 fL (9.1-12.4); Platelet Count 222 K/mm3 (150-400); RDW Coefficient Variation 18.3 % (11.7-14.2); RDW Standard Deviation 57.6 fL (35.1-46.3); Red Blood Cell Count 2.87 M/mm3 (3.80-5.20); White Blood Cell Count 13.88 K/mm3 (4.00-11.30)
[2024-07-25 07:28] LABS: Alanine Aminotransfer (ALT/SGP <6 U/L (12-78); Albumin, Blood 2.1 g/dL (3.4-5.0); Albumin/Globulin Ratio 0.6 (0.8-1.8); Alk Phos 98 U/L (50-136); Anion Gap 9 mmol/L (3-11); Aspartate Aminotrans (AST/SGOT 27 U/L (12-37); Bilirubin, Total 0.3 mg/dL (0.1-1.0); Blood Urea Nitrogen 22 mg/dL (8-24); Bun/Creatinine Ratio 32.7 (12.0-20.0); CO2, Blood 27 mmol/L (21-32); Chloride, Blood 109 mmol/L (98-108); Creatinine, Blood 0.67 mg/dL (0.40-1.00); Globulin, Blood 3.3 g/dL (2.2-4.0); Glomerular Filtration Rate 92 (60-); Glucose, Blood 90 mg/dL (70-99); Potassium, Blood 3.5 mmol/L (3.5-5.5); Sodium, Blood 141 mmol/L (136-145); Total Protein, Blood 5.4 g/dL (6.4-8.2)
[2024-07-25 07:40] LABS: BAND PERCENT MAN 1 % (0-8); BASOPHILS PERCENT MAN 0 % (0-2); EOSINOPHILS ABSOLUTE MAN 0.27 K/mm3 (0.00-0.68); EOSINOPHILS PERCENT MAN 2 % (0-6); LYMPHOCYTES ABSOLUTE MAN 2.49 K/mm3 (0.84-5.20); LYMPHOCYTES PERCENT MAN 18 % (21-46); METAMYELOCYTE ABSOLUTE MAN 0.27 K/mm3 (0.00-0.00); METAMYELOCYTE PERCENT MAN 2 % (0-0); MONOCYTES ABSOLUTE MAN 2.22 K/mm3 (0.16-1.47); MONOCYTES PERCENT MAN 16 % (4-13); MYELOCYTE ABSOLUTE MAN 1.94 K/mm3 (0.00-0.00); MYELOCYTE PERCENT MAN 14 % (0-0); NEUTROPHILS ABSOLUTE MAN 6.52 K/mm3 (1.96-9.15); PROMYELOCYTE ABSOLUTE MAN 0.13 K/mm3 (0.00-0.00); PROMYELOCYTE PERCENT MAN 1 % (0-0); SEG NEUTROPHILS PERCENT MAN 46 % (41-73); TOTAL CELLS COUNTED 100
[2024-07-25] MEDS ORDERED: buPROPion HCL 150 MG TAB.SR.12H PO SCH (09:00)
[2024-07-25] MEDS ORDERED: Atorvastatin 40 MG Tab PO SCH (09:00)
[2024-07-25] MEDS ORDERED: Sertraline HCl 50 MG Tab PO SCH (09:00)
[2024-07-25] MEDS ORDERED: CEFAZOLIN2 GM/50 M3 IV (14:39)
[2024-07-25] MEDS ORDERED: DIPHEN12.5 MG/7 MT (14:40)
[2024-07-25] MEDS ORDERED: MICONAZOLE NITR85 GM TOP (14:41)
[2024-07-25] MEDS ORDERED: ONDA4ODT MM (14:41)
[2024-07-25 15:05] VITALS: BP 119/78
--- NOTE | 2024-07-25 17:22 | NUR ---
PT PLEASANT BUT CONFUSED TODAY. PULLED NEW PICC LINE. NOTIFIED JERICA RN, [employer] AUTOBODY REPAIRER, [place], DR HELMS AND CARE MANAGEMENT. EXPECTING TO PLACE AGAIN TOMORROW AND SEND TO SNF TOMORROW PER DR HELMS. PLACED A PERIPHERAL LINE TO GIVE ABX AND WRAPPED WELL TO PROTECT. NO OTHER NEW CONCERNS NOTED. BED IN LOW POSITION, CALL LITE IN REACN, BED ALARM ON FOR SAFETY.
[2024-07-25 19:32] VITALS: BP 115/67
--- NOTE | 2024-07-26 04:23 | NUR ---
SHIFT SUMMARY PATIENT HAD NO ACUTE CHANGES. ALERT TO SELF WITH CONFUSION. PIV INTACT AND IV ABX INFUSED. PATIENT UNWRAPPED COBAN AND PULLED NETTING OFF PIV. DENIES CHEST PAIN, SOB, AND N/V. VSS/AFEBRILE. ORAL KEPPRA GIVEN PER EMAR. CALL LIGHT IN REACH. BED IN LOWEST POSITION AND ALARM ACTIVATED. WILL CONTINUE TO MONITOR UNTIL DAY SHIFT NURSE ASSUMES CARE.
[2024-07-26 04:24] VITALS: BP 121/72
[2024-07-26 05:44] LABS: Hematocrit 24.4 % (33.0-51.0); Hemoglobin 7.9 g/dL (11.5-16.0); Mean Corpuscular HGB 29.4 pg (26.0-34.0); Mean Corpuscular HGB Conc 32.4 g/dL (31.5-36.5); Mean Corpuscular Volume 91 fL (80-100); Mean Platelet Volume 10.9 fL (9.1-12.4); Platelet Count 254 K/mm3 (150-400); RDW Coefficient Variation 18.4 % (11.7-14.2); RDW Standard Deviation 57.1 fL (35.1-46.3); Red Blood Cell Count 2.69 M/mm3 (3.80-5.20); White Blood Cell Count 13.23 K/mm3 (4.00-11.30)
[2024-07-26 06:08] LABS: Alanine Aminotransfer (ALT/SGP <6 U/L (12-78); Albumin, Blood 2.1 g/dL (3.4-5.0); Albumin/Globulin Ratio 0.6 (0.8-1.8); Alk Phos 88 U/L (50-136); Anion Gap 10 mmol/L (3-11); Aspartate Aminotrans (AST/SGOT 27 U/L (12-37); Bilirubin, Total 0.3 mg/dL (0.1-1.0); Blood Urea Nitrogen 21 mg/dL (8-24); Bun/Creatinine Ratio 32.3 (12.0-20.0); CO2, Blood 27 mmol/L (21-32); Calcium, Blood 8.1 mg/dL (8.5-10.1); Chloride, Blood 111 mmol/L (98-108); Creatinine, Blood 0.65 mg/dL (0.40-1.00); Globulin, Blood 3.3 g/dL (2.2-4.0); Glomerular Filtration Rate 93 (60-); Glucose, Blood 90 mg/dL (70-99); Potassium, Blood 3.7 mmol/L (3.5-5.5); Sodium, Blood 144 mmol/L (136-145); Total Protein, Blood 5.4 g/dL (6.4-8.2)
[2024-07-26 07:39] LABS: BAND PERCENT MAN 2 % (0-8); BASOPHILS ABSOLUTE MAN 0.26 K/mm3 (0.00-0.23); BASOPHILS PERCENT MAN 2 % (0-2); EOSINOPHILS ABSOLUTE MAN 0.39 K/mm3 (0.00-0.68); EOSINOPHILS PERCENT MAN 3 % (0-6); LYMPHOCYTES ABSOLUTE MAN 3.17 K/mm3 (0.84-5.20); LYMPHOCYTES PERCENT MAN 24 % (21-46); METAMYELOCYTE ABSOLUTE MAN 0.13 K/mm3 (0.00-0.00); METAMYELOCYTE PERCENT MAN 1 % (0-0); MONOCYTES ABSOLUTE MAN 1.32 K/mm3 (0.16-1.47); MONOCYTES PERCENT MAN 10 % (4-13); MYELOCYTE ABSOLUTE MAN 0.52 K/mm3 (0.00-0.00); MYELOCYTE PERCENT MAN 4 % (0-0); NEUTROPHILS ABSOLUTE MAN 7.14 K/mm3 (1.96-9.15); PLASMA CELL ABSOLUTE MAN 0.13 K/mm3 (0.00-0.00); PLASMA CELLS PERCENT MAN 1 % (0-0); PROMYELOCYTE ABSOLUTE MAN 0.13 K/mm3 (0.00-0.00); PROMYELOCYTE PERCENT MAN 1 % (0-0); SEG NEUTROPHILS PERCENT MAN 52 % (41-73); TOTAL CELLS COUNTED 100
[2024-07-26 07:46] VITALS: BP 131/73
[2024-07-26] MEDS ORDERED: Methotrexate Sod 2.5 MG Tab PO SCH (09:00)
[2024-07-26 16:57] VITALS: BP 120/80
--- NOTE | 2024-07-26 17:55 | NUR ---
SHIFT SUMMARY PATIENT A/O TO SELF. INCONTINENT OF BOWEL AND BLADDER, Q2H REPOSITIONED. FOAM DRESSINGS CHANGED TO SACRUM AND BILATERAL HEALS THIS SHIFT. LEFT HEAL WITH WOUND, RIGHT HEAL PREVENTATIVE DRESSING, AND SACRUM RED EXCORIATED SKIN NOTED. PIV TO RIGHT FOREARM REMAINS INTACT, PATIENT DID NOT ATTEMPT TO PULL LINES THIS SHIFT. PLAN TO REPLACE PICC LINE WEDNESDAY AND POSSIBLE DISCHARGE TO SNF FOR IV ABX. NO OTHER CONCERNS AT THIS TIME.
[2024-07-26 20:13] VITALS: BP 115/65
[2024-07-27 02:58] VITALS: BP 123/75
--- NOTE | 2024-07-27 06:00 | NUR ---
ADMITTED 07/24/24 FOR THROMBOCYTOPENIA, RESOLVED. ENDOCARDITIS, ANCEF. ORIENTED TO SELF. INC OF URINE AND BM. BUTTOCKS AND GROIN RED, EXCORIATED. PT WILL NEED 6 WEEKS ANTIBIOTICS, IF PICC LINE STAYS IN UNTIL WEDNESDAY DC SNF.
[2024-07-27 06:08] LABS: Hematocrit 23.8 % (33.0-51.0); Hemoglobin 7.8 g/dL (11.5-16.0); Mean Corpuscular HGB 29.7 pg (26.0-34.0); Mean Corpuscular HGB Conc 32.8 g/dL (31.5-36.5); Mean Corpuscular Volume 91 fL (80-100); Mean Platelet Volume 10.9 fL (9.1-12.4); Platelet Count 275 K/mm3 (150-400); RDW Standard Deviation 58.4 fL (35.1-46.3); Red Blood Cell Count 2.63 M/mm3 (3.80-5.20); White Blood Cell Count 13.17 K/mm3 (4.00-11.30)
[2024-07-27 06:33] LABS: Alanine Aminotransfer (ALT/SGP <6 U/L (12-78); Albumin, Blood 2.2 g/dL (3.4-5.0); Albumin/Globulin Ratio 0.6 (0.8-1.8); Alk Phos 85 U/L (50-136); Anion Gap 8 mmol/L (3-11); Aspartate Aminotrans (AST/SGOT 27 U/L (12-37); Bilirubin, Total 0.4 mg/dL (0.1-1.0); Blood Urea Nitrogen 20 mg/dL (8-24); Bun/Creatinine Ratio 33.4 (12.0-20.0); CO2, Blood 28 mmol/L (21-32); Calcium, Blood 8.1 mg/dL (8.5-10.1); Chloride, Blood 112 mmol/L (98-108); Globulin, Blood 3.4 g/dL (2.2-4.0); Glomerular Filtration Rate 95 (60-); Glucose, Blood 91 mg/dL (70-99); Potassium, Blood 3.8 mmol/L (3.5-5.5); Sodium, Blood 144 mmol/L (136-145); Total Protein, Blood 5.6 g/dL (6.4-8.2)
[2024-07-27 07:02] LABS: BAND PERCENT MAN 3 % (0-8); BASOPHILS ABSOLUTE MAN 0.26 K/mm3 (0.00-0.23); BASOPHILS PERCENT MAN 2 % (0-2); EOSINOPHILS ABSOLUTE MAN 0.26 K/mm3 (0.00-0.68); EOSINOPHILS PERCENT MAN 2 % (0-6); LYMPHOCYTES ABSOLUTE MAN 3.16 K/mm3 (0.84-5.20); LYMPHOCYTES PERCENT MAN 24 % (21-46); METAMYELOCYTE ABSOLUTE MAN 0.13 K/mm3 (0.00-0.00); METAMYELOCYTE PERCENT MAN 1 % (0-0); MONOCYTES ABSOLUTE MAN 1.05 K/mm3 (0.16-1.47); MONOCYTES PERCENT MAN 8 % (4-13); NEUTROPHILS ABSOLUTE MAN 8.29 K/mm3 (1.96-9.15); SEG NEUTROPHILS PERCENT MAN 60 % (41-73); TOTAL CELLS COUNTED 100
[2024-07-27 07:47] VITALS: BP 132/79
[2024-07-27 14:52] VITALS: BP 107/66
--- NOTE | 2024-07-27 17:38 | NUR ---
SHIFT SUMMARY PATIENT RESPONDING TO VERBAL STIMULI, ORIENTED TO SELF. DOES NOT USE CALL LIGHT FOR ASSISTANCE. PIV REMAINS IN PLACE TO RIGHT FOREARM, DRESSING REPLACED THIS EVENING. CONTINUES WITH Q2 HOUR REPOSITIONING. PUREWICK PLACED THIS AFTERNOON FOR INCONTINENCE. AT BEDSIDE THIS EVENING. DRESSINGS TO BILATERAL HEALS AND SACRUM C/D/I. REQUESTED PATIENT BE STARTED ON PROBIOTIC THIS AFTERNOON, NEW ORDER RECIEVED FROM DR. LAYTON. GOAL IS TO REPLACE PICC LINE AND DISCHARGE TO SNF WITH IV ABX. IV ABX INFUSED PER MAR, NO OTHER CONCERNS THIS SHIFT.
[2024-07-27 20:00] VITALS: BP 116/62
[2024-07-27] MEDS ORDERED: Lactobacil 2-S.Thermo-Bifido 1 1 Cap PO SCH (21:00)
[2024-07-28 03:45] VITALS: BP 112/66
--- NOTE | 2024-07-28 05:22 | NUR ---
ADMITTED 07/24/24 THROMBOCYTOPENIA, RESOLVED. ENDOCARDITIS MITRAL VALVE. ORIENTED TO SELF INCT URINE AND BM. NEW IV PLACE IN R LOWER ARM D/T PULLING OUT OTHER IV. PT WILL NEED 6 WEEKS IV ABX OR FAMILY IS DECIDING ON [facility]FOR CARES IF PT KEEPS PULLING IV.
[2024-07-28 06:16] LABS: BASOPHILS ABSOLUTE AUTO 0.17 K/mm3 (0.00-0.23); BASOPHILS PERCENT AUTO 2 % (0-2); EOSINOPHILS ABSOLUTE AUTO 0.15 K/mm3 (0.00-0.68); EOSINOPHILS PERCENT AUTO 1 % (0-6); Hematocrit 24.4 % (33.0-51.0); Hemoglobin 7.8 g/dL (11.5-16.0); IMMATURE GRAN PERCENT AUTO 4 % (0-1); LYMPHOCYTES ABSOLUTE AUTO 2.42 K/mm3 (0.84-5.20); LYMPHOCYTES PERCENT AUTO 23 % (21-46); MONOCYTES ABSOLUTE AUTO 0.63 K/mm3 (0.16-1.47); MONOCYTES PERCENT AUTO 6 % (4-13); Mean Corpuscular HGB 29.8 pg (26.0-34.0); Mean Corpuscular Volume 93 fL (80-100); Mean Platelet Volume 10.6 fL (9.1-12.4); NEUTROPHILS ABSOLUTE AUTO 6.88 K/mm3 (1.96-9.15); NEUTROPHILS PERCENT AUTO 65 % (41-73); Platelet Count 283 K/mm3 (150-400); RDW Coefficient Variation 19.3 % (11.7-14.2); RDW Standard Deviation 57.9 fL (35.1-46.3); Red Blood Cell Count 2.62 M/mm3 (3.80-5.20); White Blood Cell Count 10.65 K/mm3 (4.00-11.30)
[2024-07-28 06:48] LABS: Albumin, Blood 2.2 g/dL (3.4-5.0); Albumin/Globulin Ratio 0.6 (0.8-1.8); Bilirubin, Total 0.4 mg/dL (0.1-1.0); Bun/Creatinine Ratio 30.3 (12.0-20.0); Calcium, Blood 8.2 mg/dL (8.5-10.1); Creatinine, Blood 0.56 mg/dL (0.40-1.00); Globulin, Blood 3.5 g/dL (2.2-4.0); Potassium, Blood 3.8 mmol/L (3.5-5.5); Total Protein, Blood 5.7 g/dL (6.4-8.2)
[2024-07-28 07:34] VITALS: BP 129/76
[2024-07-28] MEDS ORDERED: Megestrol Acetate Susp 400MG/10ML UDC PO SCH (09:00)
[2024-07-28 15:22] VITALS: BP 107/64
--- NOTE | 2024-07-28 16:22 | NUR ---
PATIENT IS ALERT AND ORIENTED TO SELF AND . SHE HAS A POOR APPETITE, NEEDS A LOT OF ENCOURAGEMENT TO EAT. SHE DOES LIKE ENSURES. LOT TECHNICIAN IS FOLLOWING. NO IV ACCESS NEEDED. PALLIATIVE CARE IS INVOLVED. [facility] ASSESSED THE PATIENT TODAY. PATIENT BRUSHED HER TEETH TODAY, GUMS BLED. INCONTINENT OF BOWEL AND BLADDER, PUREWICK IS IN PLACE. BEDREST. PA. VSS. WILL CONTINUE TO MONITOR
--- NOTE | 2024-07-28 16:43 | NUR ---
Pt pulled out her PICC line today, and her Marco and son Joseph have decided not to pursue any further IV antibiotics for the patient after she has pulled out IV's, a martinez catheter and now the PICC line. Attempted to assist with possible placement in an adult foster home with an opening, but the patient requires 2-3 assist with repositioning and assist with ADL's, which will likely require a SNF placement. PAN OPERATOR will follow up with Pamella Pena on Wednesday, as this is pt's Marco's first preference.
[2024-07-28] MEDS ORDERED: LORazepam 2 MG/ML 1ML Injection IV PRN (17:10)
[2024-07-28] MEDS ORDERED: Scopolamine Hydrobromide Patch TOP PRN (17:10)
[2024-07-28] MEDS ORDERED: Morphine Sulfate 20 MG/1ML 1 ML Oral Syringe SL PRN (17:10)
[2024-07-28] MEDS ORDERED: Atropine Sulfate 1% Opth Soln 2ML BTL SL PRN (17:10)
[2024-07-28] MEDS ORDERED: LORazepam 0.5 MG Tab PO PRN (17:15)
--- NOTE | 2024-07-28 23:10 | NUR ---
PATIENT HAD A LARGE SOFT/LOOSE BOWEL MOVEMENT IN BED AND SOAKED THROUGH HER SHEETS. PT HAS SOME RED UNBLANCHBLE SKIN ON HER COCCYX AND BUTTOCKS.I PLACED A MEPILEX BUT SKIN LOOKS LIKE ITS STARTING TO BECOME IRRITATED. MYSELF AND QA TEST ANALYST POSITED PATIENT ON PILLOWS UNDER RIGHT HIP BUT SHE IS A HARD TURN WHO IS UNABLE TO HELP AT ALL AND IS COMPLETELY WEIGHT DURING TURNING, THE TURNING IS ALSO PAINFUL FOR HER. 10MG OF ROXAOL GIVEN FOR PAIN (eMAR).THIS PATIENT IS COMPLIANT WITH CARE BUT WILL NOT CALL TO BE CHANGED AND VERY INCONTINENT. I ALSO LOOKED AT THE PATIENTS HEELS AND THEY LOOK OKAY, HEEL MEPILEX IN PLACE.
--- NOTE | 2024-07-29 04:09 | NUR ---
SHIFT SUMMARY: PT IS A 73 YO COMFORT CARE PT WHO WAS ADMITTED FOR THROMBOCYTOPENIA AND HAS ENDOCARDITIS. PT IS WAITING APPROVAL FOR PLACEMENT AT [facility]. PATIENT IS RA AND PUREED DIET. PT TAKES MEDS WITH APPLESAUCE. PT HAS ULCERS IN GUMS, BOTTOM OF LEFT HEEL AND COCCYX (MEPILEX ON HEELS AND SACRUM). PT HAD A LARGE RUNNY BM AND IS VERY INCONTINENT TO BOWEL AND URINE. PT DOES NOT HELP WITH TURNING AND REPOSITIONING AND IT IS PAINFUL FOR PATINT.ROAXANOL HAS BEEN GIVN ONCE FOR PAIN (SEE eMAR).PT IS ABLE TO ANSWER QUESTION BUT WILL NOT USE HER CALL LIGHT. MYSELF AND DISTRICT SUPERINTENDENT HAVE REPOSITIONED AND FLOATED ON PILOWS ALTERNATING SIDES Q2. I CHANGED MEPILEX ON SACRUM AND LEFT HEEL.CALL LIGHT WIHIN REACH.
--- NOTE | 2024-07-29 16:57 | NUR ---
SHIFT SUMMARY: NO EVENTS OR CHANGES WITH THE PATIENT THROUGHOUT THE SHIFT. SHE REFUSED MEDICATIONS ALL DAY DUE TO REQUESTING TO SLEEP. WILL WAKE PERIODICALLY FOR SOME MEAL/FLUID INTAKE; VERY LITTLE THEN GOES BACK TO RESTING. DENIES ANY PAIN OR ANXIETY. SHE HAS HAD A VISIT FROM HER FRIEND TO TODAY AVEL AND WAS AWAKE DURING THAT VISIT, BUT DENIED ANY NEEDS WHEN ASKS. PATIENT BEING CHECKED AND REPOSITIONED EVERY 2 HOURS. SHE IS VOIDING. SHE IS CURRENTLY VISITING WITH HER , NO SIGNS OR SYMPTOMS OF DISTRESS, PLAN OF CARE ONGOING.
--- NOTE | 2024-07-30 06:27 | NUR ---
SHIFT SUMMARY PT HAS RESTED T/O THE NIGHT, DENIES PAIN OR NEEDS DURING ROUNDS. PT DID NOT REFUSE HER HS MEDICATIONS THIS SHIFT. PT HAS HAD SEVERAL INCONTINENT VOIDS. REQUIRES 3 PEOPLE FOR TURNS AND CHANGES. DRESSING ON RIGHT HEEL CHANGED THIS SHIFT. DRESSING TO LEFT HEEL INTACT. COMFORT ASSESSED T/O THE SHIFT. PLAN OF CARE UNCHANGED. BED IN LOWEST POSITION, CALL LIGHT WITHIN REACH.
--- NOTE | 2024-07-30 08:00 | NUR ---
pt laying in bed with eyes closed, wakes briefly to say she wants to sleep, no s/s of distress, resp even and unlabored, call light in reach.
--- NOTE | 2024-07-30 09:51 | NUR ---
pt did wake and take po meds and is drinking an ensure. no complaints or needs at this time. call light in reach.
[2024-07-30] MEDS ORDERED: Enoxaparin 40 MG/0.4 ML SYR SC SCH (16:00)
[2024-07-30] MEDS ORDERED: NS 250 ML IV PRN (16:15)
--- NOTE | 2024-07-30 18:25 | NUR ---
pt family in, asking to speak with Dr. Ventura, she came in to see them, comfort care status has been cancelled, will start abx, pt sleeps when left undisturbed, has been turned and changed throughout the day, no further changes this shift. call light in reach.
[2024-07-30 20:22] VITALS: BP 122/76
[2024-07-31 02:31] VITALS: BP 123/79
[2024-07-31 05:19] LABS: BASOPHILS ABSOLUTE AUTO 0.12 K/mm3 (0.00-0.23); BASOPHILS PERCENT AUTO 2 % (0-2); EOSINOPHILS ABSOLUTE AUTO 0.09 K/mm3 (0.00-0.68); EOSINOPHILS PERCENT AUTO 1 % (0-6); Hematocrit 22.6 % (33.0-51.0); Hemoglobin 7.3 g/dL (11.5-16.0); IMMATURE GRAN ABSOLUTE AUTO 0.15 K/mm3 (0.00-0.10); IMMATURE GRAN PERCENT AUTO 2 % (0-1); LYMPHOCYTES ABSOLUTE AUTO 2.54 K/mm3 (0.84-5.20); LYMPHOCYTES PERCENT AUTO 35 % (21-46); MONOCYTES ABSOLUTE AUTO 0.46 K/mm3 (0.16-1.47); MONOCYTES PERCENT AUTO 6 % (4-13); Mean Corpuscular HGB 30.2 pg (26.0-34.0); Mean Corpuscular HGB Conc 32.3 g/dL (31.5-36.5); Mean Corpuscular Volume 93 fL (80-100); Mean Platelet Volume 9.7 fL (9.1-12.4); NEUTROPHILS ABSOLUTE AUTO 3.91 K/mm3 (1.96-9.15); NEUTROPHILS PERCENT AUTO 54 % (41-73); Platelet Count 304 K/mm3 (150-400); RDW Coefficient Variation 19.1 % (11.7-14.2); RDW Standard Deviation 57.9 fL (35.1-46.3); Red Blood Cell Count 2.42 M/mm3 (3.80-5.20); White Blood Cell Count 7.27 K/mm3 (4.00-11.30)
[2024-07-31 05:54] LABS: Albumin, Blood 2.2 g/dL (3.4-5.0); Albumin/Globulin Ratio 0.6 (0.8-1.8); Bilirubin, Total 0.5 mg/dL (0.1-1.0); Bun/Creatinine Ratio 33.6 (12.0-20.0); Calcium, Blood 8.8 mg/dL (8.5-10.1); Creatinine, Blood 0.57 mg/dL (0.40-1.00); Globulin, Blood 3.6 g/dL (2.2-4.0); Potassium, Blood 3.7 mmol/L (3.5-5.5); Total Protein, Blood 5.8 g/dL (6.4-8.2)
--- NOTE | 2024-07-31 06:25 | NUR ---
RN shift summary: Patient is more alert. She has been more helpful with assisting with turns, not pushing against the side rails like she has been. She is incontinent of bowel and bladder. She has been turned and changed q2-3 hours. Patient has a redened bottom due to freq incontinence. Pt was medicated with tylenol at the beginning of shift for hand pain with good relief. Skin with scattered bruising on arms with fragil skin. Bed alarm is on. Has rested well tonight.
[2024-07-31 07:55] VITALS: BP 117/76
[2024-07-31] MEDS ORDERED: CeFAZolin Sodium 2,000 MG in NS 100 ML IV SCH (12:40)
[2024-07-31 15:53] VITALS: BP 111/72
--- NOTE | 2024-07-31 16:52 | NUR ---
SHIFT NOTE: PT IS INCREASINGLY MORE ALERT T/O SHIFT. SHE IS ABLE TO ANSWER SIMPLE QUESTIONS ACCURATELY BUT ORIENTED TO SELF ONLY. SHE DENIES PAIN. SHE HAS BEEN INCONT AND STAFF HAS REPOSITIONED HER Q2-3HOURS TO PROTECT SKIN. SHE IS ON RA WITH STEADY UNLABORED RESPIRATIONS. SHE HAS A PIV ON HER RIGHT WRIST AND HAS NOT ATTEMPTED TO PULL AT ANY LINES TODAY. BROUGHT IN A LONGSLEEVE SHIRT TO ASSIST IN PROTECTING IV SITE. SHE HAS ONLY REQUIRED 2 STAFF MEMBERS TO ROLL HER SHE IS NOW ASSISTING IN HER CARE. HEEL PROTECTORS REMAIN ON HER HEELS C/D/I. WILL CONTINUE TO MONITOR AND REPORT TO ONCOMING RN
[2024-07-31 19:40] VITALS: BP 123/70
[2024-08-01 02:58] VITALS: BP 130/75
--- NOTE | 2024-08-01 05:54 | NUR ---
NOC SUMMARY- PT HAS BEEN ALERT AND COOPERATIVE. PT HAS BEEN TURNED Q2. PT BRIEF CHANGED NEEDED. PT TOLERATING PO FLUIDS WELL. PT HAS LEFT IV SITE ALONE FOR THE SHIFT. CALL LIGHT IN REACH.
[2024-08-01 06:02] LABS: BASOPHILS ABSOLUTE AUTO 0.12 K/mm3 (0.00-0.23); BASOPHILS PERCENT AUTO 2 % (0-2); EOSINOPHILS ABSOLUTE AUTO 0.16 K/mm3 (0.00-0.68); EOSINOPHILS PERCENT AUTO 2 % (0-6); Hematocrit 23.6 % (33.0-51.0); Hemoglobin 7.6 g/dL (11.5-16.0); IMMATURE GRAN ABSOLUTE AUTO 0.17 K/mm3 (0.00-0.10); IMMATURE GRAN PERCENT AUTO 2 % (0-1); LYMPHOCYTES PERCENT AUTO 28 % (21-46); MONOCYTES ABSOLUTE AUTO 0.56 K/mm3 (0.16-1.47); MONOCYTES PERCENT AUTO 7 % (4-13); Mean Corpuscular HGB 30.4 pg (26.0-34.0); Mean Corpuscular HGB Conc 32.2 g/dL (31.5-36.5); Mean Corpuscular Volume 94 fL (80-100); NEUTROPHILS ABSOLUTE AUTO 4.68 K/mm3 (1.96-9.15); NEUTROPHILS PERCENT AUTO 59 % (41-73); Platelet Count 301 K/mm3 (150-400); RDW Standard Deviation 59.3 fL (35.1-46.3); White Blood Cell Count 7.89 K/mm3 (4.00-11.30)
[2024-08-01 06:26] LABS: C-REACTIVE PROTEIN, EXT RANGE 0.529 mg/dL (0.000-0.300); Magnesium, Blood 1.4 mg/dL (1.6-2.4)
[2024-08-01 06:30] LABS: Albumin, Blood 2.3 g/dL (3.4-5.0); Albumin/Globulin Ratio 0.6 (0.8-1.8); Bilirubin, Total 0.3 mg/dL (0.1-1.0); Bun/Creatinine Ratio 39.2 (12.0-20.0); Calcium, Blood 8.7 mg/dL (8.5-10.1); Creatinine, Blood 0.56 mg/dL (0.40-1.00); Globulin, Blood 3.7 g/dL (2.2-4.0); Phosphorus, Blood 2.7 mg/dL (2.5-4.9); Potassium, Blood 3.9 mmol/L (3.5-5.5)
[2024-08-01 07:11] VITALS: BP 132/76
--- NOTE | 2024-08-01 12:38 | NUR ---
NOTE PT HAS A MAGNESIUM LEVEL OF 1.4. REPORTED/NOTIFIED DR. BALBUENA AY 1100. NO NEW ORDERS AT THIS TIME.
[2024-08-01 14:57] VITALS: BP 123/78
[2024-08-01] MEDS ORDERED: Magnesium Oxide 400 MG Tab PO SCH (16:00)
--- NOTE | 2024-08-01 16:57 | NUR ---
SHIFT SUMMARY PT IS A&O TO SELF. PT ADMITTED FOR THROMBOCYTOPENIA. PT RECIEVED PICC LINE TODAY IN UPPER R ARM. PLAN IS TO DISCHARGE HOME AND RECIEVE ANTIBIOTICS OUT-PATIENT FOR INFECTION. PT REPORTS NO CHEST PAIN/SOB. PT ON ROOM AIR. PT ON TELE. PT HAS EPISODES OF INCONTINENCE WITH STOOL AND URINE. PT HAS ATTENDS ON. PT WAS REPOSITIONED Q2 HRS. PT DECLINED LUNCH BUT DRANK AN ENSURE. PT REPORTS NO PAIN. VSS. AT BEDSIDE THROUGH PART OF SHIFT. CALL LIGHT IN REACH. PT RECEIEVED A DOSE OF MAGNESIUM DUE TO LOW ELECTROLYTE LEVEL. NO ACUTE CHANGES NOTED DURING SHIFT. PT ON ROOM AIR.
[2024-08-01 19:18] VITALS: BP 115/75
[2024-08-02 04:35] VITALS: BP 127/76
--- NOTE | 2024-08-02 05:25 | NUR ---
NOC SUMMARY- PT MORE ALERT AND ANSWERING SIMPLE QUESTIONS. PT ABLE TO ASSIST IN TURNS AND REPOSITIONING. PT BRIEF CHANGED NEEDED. Q 2 TURNS PROVIDED. PT TAKING IN PO FLUIDS. PT CURRENTLY SLEEPING IN NO DISTRESS. CALL LIGHT IN REACH AND BED ALARM ON.
[2024-08-02 07:41] VITALS: BP 134/83
[2024-08-02 15:38] VITALS: BP 116/76
--- NOTE | 2024-08-02 17:55 | NUR ---
SHIFT SUMMARY PT RESTING QUIETLY AWAKE, WATCHING TV AT START OF SHIFT. PT VERY WEAK, NOT WANTING TO EAT MUCH AT ALL. PT ONLY WILLING TO EAT ONE OR TWO BITES PER MEAL. PT'S LONG TIME FRIEND EVEN BROUGHT IN FOOD AND PT WOULD ONLY EAT ONE BITE. OTHER VISITORS IN DURING THE DAY WELL. PT VOIDING WELL; HEAVY WETTER. PT CLEANED, CHANGED, AND REPOSITIONED THRU OUT THE SHIFT. HEEL PROTECTORS IN PLACED WITH HEELS FLOATED ON PILLOWS. PER SHIFT REPORT, PT TO D/C TO SNF FOR 6 WEEKS IV ABX. PT MEDICALLY STABLE. CALL LT IN REACH.
[2024-08-02 19:29] VITALS: BP 115/72
--- NOTE | 2024-08-02 23:36 | NUR ---
2056 PT LYING IN BED, DENIES ANY DISCOMFORT FOR THIS SHIFT. ORAL CARE DONE. NO OTHER APPARENT SIGNS OF DISTRESS. DENIES NEED FOR ANYTHING AT THIS TIME. CALL LIGHT IS IN REACH. BED ALARM IS ON.
--- NOTE | 2024-08-02 23:37 | NUR ---
PT LYING IN BED, EYES CLOSED, APPEARS TO BE RESTING. WAKES EASILY TO VERBAL STIMULI. NO APPARENT SIGNS OF DISTRESS. CALL LIGHT IS IN REACH. BED ALARM IS ON.
--- NOTE | 2024-08-03 01:44 | NUR ---
PT LYING IN BED, EYES CLOSED, APPEARS TO BE RESTING. BREATHING IS EVEN, UNLABORED. NO APPARENT SIGNS OF DISTRESS. CALL LIGHT IS IN REACH. BED ALARM IS ON.
[2024-08-03 03:49] VITALS: BP 124/75
--- NOTE | 2024-08-03 04:15 | NUR ---
PT LYING IN BED, EYES CLOSED, APPEARS TO BE RESTING. WAKES EASILY TO VERBAL STIMULI. DENIES NEED FOR ANYTHING AT THIS TIME. CALL LIGHT IS IN REACH. BED ALARM IS ON.
--- NOTE | 2024-08-03 05:45 | NUR ---
PT IS AAO X 2-3, ON RA. DENIED ANY DISCOMFORT FOR THIS SHIFT.
--- NOTE | 2024-08-03 05:46 | NUR ---
ASSISTED DIESEL ENGINE TESTER IN TURNING AND CHANGING PT. PT TOLERATED PROCEDURE WELL.NO APPARENT SIGNS OF DISTRESS. DENIES NEED FOR ANYTHING ELSE AT THIS TIME. CALL LIGHT IS IN REACH. BED ALARM IS ON. NO OTHER CHANGES THIS SHIFT.
[2024-08-03 06:05] LABS: BASOPHILS ABSOLUTE AUTO 0.14 K/mm3 (0.00-0.23); BASOPHILS PERCENT AUTO 1 % (0-2); EOSINOPHILS ABSOLUTE AUTO 0.24 K/mm3 (0.00-0.68); EOSINOPHILS PERCENT AUTO 2 % (0-6); Hemoglobin 7.8 g/dL (11.5-16.0); IMMATURE GRAN ABSOLUTE AUTO 0.22 K/mm3 (0.00-0.10); IMMATURE GRAN PERCENT AUTO 2 % (0-1); LYMPHOCYTES ABSOLUTE AUTO 2.57 K/mm3 (0.84-5.20); LYMPHOCYTES PERCENT AUTO 26 % (21-46); MONOCYTES ABSOLUTE AUTO 0.87 K/mm3 (0.16-1.47); MONOCYTES PERCENT AUTO 9 % (4-13); Mean Corpuscular HGB Conc 32.5 g/dL (31.5-36.5); Mean Corpuscular Volume 95 fL (80-100); Mean Platelet Volume 9.9 fL (9.1-12.4); NEUTROPHILS ABSOLUTE AUTO 5.88 K/mm3 (1.96-9.15); NEUTROPHILS PERCENT AUTO 59 % (41-73); Platelet Count 292 K/mm3 (150-400); RDW Coefficient Variation 21.8 % (11.7-14.2); Red Blood Cell Count 2.52 M/mm3 (3.80-5.20); White Blood Cell Count 9.92 K/mm3 (4.00-11.30)
[2024-08-03 06:34] LABS: Alanine Aminotransfer (ALT/SGP <6 U/L (12-78); Albumin, Blood 2.5 g/dL (3.4-5.0); Albumin/Globulin Ratio 0.7 (0.8-1.8); Alk Phos 75 U/L (50-136); Anion Gap 10 mmol/L (3-11); Aspartate Aminotrans (AST/SGOT 26 U/L (12-37); Bilirubin, Total 0.3 mg/dL (0.1-1.0); Blood Urea Nitrogen 20 mg/dL (8-24); Bun/Creatinine Ratio 40.5 (12.0-20.0); CO2, Blood 27 mmol/L (21-32); Calcium, Blood 9.1 mg/dL (8.5-10.1); Chloride, Blood 107 mmol/L (98-108); Creatinine, Blood 0.49 mg/dL (0.40-1.00); Globulin, Blood 3.6 g/dL (2.2-4.0); Glomerular Filtration Rate 99 (60-); Glucose, Blood 89 mg/dL (70-99); Potassium, Blood 3.7 mmol/L (3.5-5.5); Sodium, Blood 140 mmol/L (136-145); Total Protein, Blood 6.1 g/dL (6.4-8.2)
[2024-08-03 07:12] VITALS: BP 133/81
--- NOTE | 2024-08-03 08:44 | NUR ---
pt sitting up in bed ready for breakfast, a/ox2-3 pleasant and cooperative with care, states she's doing good, and had a good night rest, lungs are clear in upper warren, dim in bases, resp even and unlabored, no cough noted at this time, hrr, no edema noted, ppp+2, cap refill <3 sec vs stable, afebrile, picc line to atilio site is clear and patent, piv to rh site is clear and patent, btx4 abd flat soft nontender, incont of bowel/bladder, briefs in place, skin c/w/d, heel protectors in place, can wiggle feet, push down, but not pull up, music instructor are strong and equal, alejandro, call light in reach.
[2024-08-03 15:36] VITALS: BP 120/78
--- NOTE | 2024-08-03 18:17 | NUR ---
pt had bedbath, several bms today, up to recliner, spouce in to visit, mepilex placed to sacrum for protection, no open areas, no acute changes this shift, call light in reach.
[2024-08-03 19:17] VITALS: BP 113/71
[2024-08-04 05:03] VITALS: BP 131/85
--- NOTE | 2024-08-04 05:49 | NUR ---
SHIFT SUMMARY: Pt is admitted for thrombocytopenia and is a DNR. is alert and able to make some needs known. ADLs have been mostly 1p during shift but did not get out of bed. Denies pain or discomfort when asked. PICC to upper right arm is patent with dressing that is CDI.
[2024-08-04 07:26] VITALS: BP 126/79
--- NOTE | 2024-08-04 10:31 | NUR ---
AM checks this morning, patient needed full bedding change, depnd and repos, decided to add lift sheet and get her upto chair. [place] suggested by r.n. Purwik supplies setup but wall inner motor not working. Multiple motors attempted. Up in chair alert and pleasant mood. Minor amount of ensure accepted, refused rest of bfast meal. R.N. aware and admin skin chek and care. Facilities called.
[2024-08-04 11:32] LABS: Influenza A, PCR NEGATIVE (NEGATIVE); Influenza B, PCR NEGATIVE (NEGATIVE); Resp Syncytial Virus, PCR NEGATIVE (NEGATIVE); SARS-Cov-2 (COVID-19) PCR, MMC NEGATIVE (NEGATIVE)
--- NOTE | 2024-08-04 13:33 | NUR ---
DISCHARGE NOTE PATIENT ALERT AND ORIENTED TO SELF. INCONTINENT OF BOWEL AND BLADDER. PICC LINE TO RIGHT UPPER ARM, FUNCTIONING PROPERLY. ANTIBIOTICS ADMINISTERED THROUGH PICC PRIOR TO DISCHARGE. LEFT VIA WHEELCHAIR TRANSPORTATION TO [facility], REPORT GIVEN TO DIRK. PIV TO RIGHT HAND REMOVED PRIOR TO DISCHARGE. COVID SWAB NEGATIVE THIS AM. NO OTHER CONCERNS. CALLED BY CASE MANAGEMENT TO INFORM OF DISCHARGE TO [facility].
== END 2024-08-04 13:23 | DRG 288 ==
LOC: ER 12:43 → PCU 16:49 → MEDS 16:49 → PCU 18:53 → MEDS 07-13 01:38 → ENPENDDIS 08-04 11:48 → MEDS 08-04 13:23
PROVIDERS: Emergency Medicine; Family Medicine; Hospitalist; Internal Medicine; Internal Medicine Hematology & Oncology; ADMIT Family Medicine
PROC: 30233S1 Transfusion of Nonautologous Globulin into Peripheral Vein, Percutaneous Approach (ICD-10-PCS; 2024-07-13)
PROC: 30233R1 Transfusion of Nonautologous Platelets into Peripheral Vein, Percutaneous Approach (ICD-10-PCS; principal; 2024-07-15)
PROC: 30233N1 Transfusion of Nonautologous Red Blood Cells into Peripheral Vein, Percutaneous Approach (ICD-10-PCS; 2024-07-15)
DX: I33.0 Acute and subacute infective endocarditis (principal); A41.9 Sepsis, unspecified organism; G92.8 Other toxic encephalopathy; D69.3 Immune thrombocytopenic purpura; I48.20 Chronic atrial fibrillation, unspecified; N17.9 Acute kidney failure, unspecified; D62 Acute posthemorrhagic anemia; N39.0 Urinary tract infection, site not specified; F05 Delirium due to known physiological condition; I34.0 Nonrheumatic mitral (valve) insufficiency; I48.91 Unspecified atrial fibrillation; Z66 Do not resuscitate; Z51.5 Encounter for palliative care; E87.6 Hypokalemia; B95.61 Methicillin susceptible Staphylococcus aureus infection as the cause of diseases classified elsewhere; R62.7 Adult failure to thrive; K21.9 Gastro-esophageal reflux disease without esophagitis; L89.152 Pressure ulcer of sacral region, stage 2; M06.9 Rheumatoid arthritis, unspecified; L89.622 Pressure ulcer of left heel, stage 2; G40.909 Epilepsy, unspecified, not intractable, without status epilepticus; I12.9 Hypertensive chronic kidney disease with stage 1 through stage 4 chronic kidney disease, or unspecified chronic kidney disease; N18.30 Chronic kidney disease, stage 3 unspecified; D63.1 Anemia in chronic kidney disease; Z96.611 Presence of right artificial shoulder joint; G25.81 Restless legs syndrome; M62.84 Sarcopenia; G47.30 Sleep apnea, unspecified; E66.9 Obesity, unspecified; Z96.652 Presence of left artificial knee joint; Z96.641 Presence of right artificial hip joint; F01.50 Vascular dementia, unspecified severity, without behavioral disturbance, psychotic disturbance, mood disturbance, and anxiety; K02.9 Dental caries, unspecified; Z88.0 Allergy status to penicillin; Z91.030 Bee allergy status; Z91.038 Other insect allergy status; Z90.49 Acquired absence of other specified parts of digestive tract; Z79.01 Long term (current) use of anticoagulants; Z79.899 Other long term (current) drug therapy; Z74.01 Bed confinement status; Z86.73 Personal history of transient ischemic attack (TIA), and cerebral infarction without residual deficits
CPT/HCPCS: 0241U; 36415; 36430; 51702; 70450; 71045; 80048; 80053; 80162; 80177; 80202; 81001; 82140; 82607; 82728; 82746; 82784; 83521; 83540; 83550; 83735; 83880; 84100; 84155; 84165; 84439; 84443; 84484; 85014; 85018; 85025; 85379; 85384; 85651; 85730; 86022; 86140; 86334; 86850; 86900; 86901; 86923; 87040; 87077; 87147; 87186; 92526; 92610; 93005; 93010; 93306; 93312; 93325; 94760; 94762; 97110; 97162; 97166; 97530; 97535; 99152; 99153; 99285-25; A9270; C1751; J0690; J0696; J1459; J1650; J1953; J2250; J2919; J3010; J3370; J3480; J7040; J7050; J7120; J8610; P9016; P9035; Q5125

== ENCOUNTER 2024-08-07 10:48 | Emergency (ER) | payer OTHER ==
[~2024-08-07] VITALS: Ht 167.6 cm; Wt 99.8 kg
[~2024-08-07 10:48] MED LIST changes: +CEFAZOLIN2 GM/50 M3 IV; +DIPHEN12.5 MG/7 MT; +FURO20 PO; +HUMIRA40 MG/0.2 INJ; +MICONAZOLE NITR85 GM TOP; +ONDA4ODT MM; +PANT40
[2024-08-07 17:04] VITALS: BP 117/64
== END 2024-08-07 17:04 | disposition home or self-care (01) ==
LOC: ER 10:48
DX: Z45.2 Encounter for adjustment and management of vascular access device (principal); I10 Essential (primary) hypertension; Z88.0 Allergy status to penicillin; Z91.030 Bee allergy status; Z79.01 Long term (current) use of anticoagulants; Z79.899 Other long term (current) drug therapy; Z96.611 Presence of right artificial shoulder joint; Z96.652 Presence of left artificial knee joint; Z96.641 Presence of right artificial hip joint
CPT/HCPCS: 36569; 99283; C1751